=== PATIENT | female | born 1960 | race Caucasian/White ===

== ENCOUNTER → 2021-01-09 | Outpatient (CLI) | payer BC ==
--- NOTE | 2021-01-10 13:31 | REPMRS ---
Patient History The patient states she had a clinical breast exam in December 2020. Patient is postmenopausal and is nulliparous. Family history of colorectal cancer in paternal uncle, breast cancer in mother, colorectal cancer in paternal grandfather, unknown cancer in maternal grandmother. No Hormone Replacement Therapy Covid vaccines in her right arm 06/2020. Patient states no breast complaints today. Patient has signed MRS History Sheet. Digital Woman Screen Mammo: January 09, 2021 - Exam #: [id number] Bilateral CC and MLO view(s) were taken. Technologist: Joslyn Cameron, RT FINDINGS: There are scattered fibroglandular densities. Screening. Digital screening (2D) mammography was performed bilaterally in the CC and MLO projections. Additionally, breast tomosynthesis (3D mammography) was performed bilaterally in the CC and MLO projections. Todays exam was compared to the prior exam/exams. By history, the patient has no complaints of a palpable breast abnormality or other significant breast complaints. The breasts are unchanged in size and shape. There are no darrel-soft tissue densities or spiculated masses. There is no internal architectural distortion. Once again, stable benign appearing calcifications are seen.There are no suspicious darrel-calcific clusters. Skin thickening or nipple retraction is not present. IMPRESSION: BI-RADS Category 2- Benign Findings. There is no evidence of malignant alteration of the breasts. Followup examination recommended in one year. The Volpara volumetric breast density category is B, there are scattered areas of fibroglandular densities. This mammogram was read with the assistance of [facility],an FDA approved computer aided detection system for mammography. The lifetime Tyrer-Cuzick score is 22.4 % Due to the Tyrer Cuzick score of 20% or greater MRI is warranted. Negative x-ray reports should not delay surgical consultation if a dominant or clinically suspicious mass is present. Not all breast cancers can be identified by mammography. Therefore, we recommend that you continue to perform regular breast self-examination and physical examination and then promptly contact your physician of any concerns or changes. Adenosis and dense breasts may obscure an underlying neoplasm. Assessment: BI-RADS/ACR category 2 mammogram. Benign Findings. Recommendation Routine screening mammogram of both breasts in 1 year. Electronically Signed By: Silver Tim DO 01/10/21 1852
== END ==
LOC: M WHC 13:27
PROVIDERS: ATTEND Nurse Practitioner Family
DX: Z12.31 Encounter for screening mammogram for malignant neoplasm of breast (principal)

== ENCOUNTER → 2021-02-28 | Outpatient (CLI) | payer BC ==
[~2021-02-28] MED LIST: LEXA1TAB2 PO; ONE-1TAB PO
== END ==
LOC: M LABSMTC 09:39
PROVIDERS: ATTEND Anesthesiology
DX: Z01.812 Encounter for preprocedural laboratory examination (principal); Z20.822 Contact with and (suspected) exposure to COVID-19

== ENCOUNTER 2021-03-05 11:02 | Day surgery (SDC) | payer BC ==
[~2021-03-05] VITALS: Ht 167.6 cm; Wt 81.2 kg
[~2021-03-05 11:02] MED LIST changes: +NS 1,000 ML IV ONE
--- OUTSIDE RECORDS SUMMARY | 2021-03-05 11:06 | CCD ---
Author Organization Unknown Address [address] [place] [id number] Phone [phone] Care Team Providers Care Dye Stand Loader Name Role Phone Lani Ramírez Unavailable Unavailable Allergies Code Code System Name Reaction Severity Status Onset NKDA Medications Name Status Start Date Stop Date albuterol sulfate Active Not available Clenpiq 10 mg-3.5 gram-12 gram/160 mL oral solution Active 02/18/2021 Not available clindamycin 2 % vaginal cream Completed escitalopram 20 mg tablet Active Not av ailable fluconazole 150 mg tablet Completed 2020 metronidazole 0.75 % vaginal gel Completed 12/06/2020 metronidazole 500 mg tablet Take 1 tablet twice a day by oral route. Active Not available Problems Name Status Onset Date Source Human Papilloma Virus Infection Active 12/21/2020 Procedures Date Name Performed by 12/06/2020 MAMMO, Screening, Digital, Bilateral [facility] [address] [place], [place] [id number] (Work Place) 12/06/2020 LDCT, Chest, for Lung Cancer Screening S [facility] [address] [place], [place] [id number] (Work Place) Notes: has had 2 colposcopy Results Lab Results Date Name Specimen Result Interpretation Description Value Range Status Address Iron + TIBC + Ferritin, Serum Blood venous Normal Iro n, Total 81 mcg/dL 45-160 mcg/dL Final [facility] gh: [address] [facility] [place] Blood venous Normal Iron Binding Capacity 37 5 mcg/dL (calc) 250-450 mcg/dL (calc) Final [facility]: [address] [facility] [place] Blood venous Normal % Saturation 22 % (calc) 16-4 5 % (calc) Final [facility]: [address] [place] Blood venous Low Ferritin 9 NG/mL 16-232 NG/mL Final [facility]: [address] [facility] Lipid Panel, Serum Blood venous High Cholesterol, T otal 231 mg/dL <200 mg/dL Final [facility]: [address] [facility] Blood venous Normal HDL Cholesterol 61 mg/dL > or = 50 mg/dL [facility]: [address] [facility] Blood venous High Triglycerides 182 mg/dL <150 mg/dL Final [facility]: [address] [facility] Blood venous High LDL-cholesterol 138 mg/dL (ca lc) Final [facility]: [address] [facility] Blood venous Normal Chol/hdlc Ratio 3.8 (calc) <5 .0 (calc) [facility]: [address] [facility] Blood venous High Non HDL Cholesterol 170 mg/dL (calc) <130 mg/dL (calc) Final [facility]: [address] [facility] HIV 1+2 Ab + HIV1 P24 Ag, Quantitative Immunoassay, Serum Normal HIV Ag/Ab, 4TH Gen non-reactive non-reactive Final [facility]: [address] [facility] TSH + Free T4, Serum Blood venous Normal Tsh 3.60 mIU/L 0.40-4.50 mIU/L [facility]: [address] [facility] Blood venous Normal T4, Free 1.0 NG/dL 0.8-1.8 NG /dL [facility]: [address] [facility] CMP, Serum or Plasma Blood venous Normal Glucose 98 mg/dL 65-99 mg/dL [facility]: [address] [facility] Blood venous Normal Urea Nitrogen (BUN) 13 mg/dL 7-25 mg/dL [facility]: [address] [facility] Blood venous Normal Creatinine 0.77 mg/dL 0.50-1. 05 mg/dL [facility]: [address] [facility] Blood venous Normal eGFR Non-afr. Singaporean 8 5 mL/min/1.73m2 > or = 60 mL/min/1.73m2 Final [facility]: [address] [facility] Blood venous Normal eGFR 99 mL/min/1.73m2 > or = 60 mL/min/1.73m2 Final [facility] [address] [facility] Blood venous BUN/creatinine Ratio not applicable (calc) 6-22 (calc) [facility]: [address] [facility] Blood venous Normal Sodium 139 mmol/L 135-146 mmo l/L [facility]: [address] [facility] Blood venous Normal Potassium 4.5 mmol/L 3.5-5.3 mmol/L [facility]: [address] [facility] Blood venous Normal Chloride 103 mmol/L 98-110 mm ol/L [facility]: [address] [facility] Blood venous Normal Carbon Dioxide 32 mmol/L 20-3 2 mmol/L [facility]: [address] [facility] Blood venous Normal Calcium 9.2 mg/dL 8.6-10.4 mg /dL [facility]: [address] [facility] Blood venous Normal Protein, Total 7.0 g/dL 6.1-8 .1 g/dL [facility]: [address] [facility] Blood venous Normal Albumin 4.2 g/dL 3.6-5.1 g/dL [facility]: [address] [facility] Blood venous Normal Globulin 2.8 g/dL (calc) 1.9- 3.7 g/dL (calc) [facility]: [address] [facility] Blood venous Normal Albumin/globulin Ratio 1 .5 (calc) 1.0-2.5 (calc) [facility]: [address] [facility] Blood venous Normal Bilirubin, Total 0.5 mg/dL 0. 2-1.2 mg/dL [facility]: [address] [facility] Blood venous Normal Alkaline Phosphatase 73 U/L 3 7-153 U/L [facility]: [address] [facility] Blood venous Normal Ast 15 U/L 10-35 U/L [facility]: [address] [facility] Blood venous Normal Alt 15 U/L 6-29 U/L Final [facility]: [address] [facility] Urinalysis Complete, Reflex Culture Urine Normal Col or dark yellow yellow [facility]: [address] [facility] Urine Normal Appearance clear clear Final Ques [facility]: [address] [facility] Urine Normal Specific [place] 1.027 1.001-1.035 Final [facility]: [address] [facility] Urine Normal Ph 8.0 5.0-8.[address] [facility] gnostics [facility]: [address] [facility] Urine Normal Glucose negative negative Final [facility]: [address] [facility] Urine Normal Bilirubin negative negative Final Q uest [facility]: [address] [facility] Urine Normal Ketones negative negative Final [facility]: [address] [facility] Urine Normal Occult Blood negative negative Final [facility]: [address] [facility] Urine Normal Protein negative negative Final [facility]: [address] [facility] Urine Normal Nitrite negative negative Final [facility]: [address] [facility] Urine Normal Leukocyte Esterase negative negative Final [facility]: [address] [facility] Urine Squamous Epithelial Cells 0-5 /hpf < or = 5 /hpf Final [facility]: [address] [facility] Urine ABNORMAL Triple Phosphate Crystals mod erate /hpf none or few /hpf Final [facility]: [address] , [place] Urine Note Final [facility]: [address] [facility] Culture, Urine Reflexive Urine Culture Final [facility]: [address] [facility] CBC W/ Auto Diff Blood venous Normal White Bl ood Cell Count 5.0 thousand/uL 3.8-10.8 thousand/uL Final [facility]: [address] [facility] Blood venous Normal Red Blood Cell Count 4.5 4 million/uL 3.80-5.10 million/uL [facility]: [address] [facility] Blood venous Normal Hemoglobin 12.2 g/dL 11.7-15. 5 g/dL [facility]: [address] [facility] Blood venous Normal Hematocrit 37.2 % 35.0-45.0 % [facility]: [address] [facility] Blood venous Normal Mcv 81.9 fL 80.0-100.0 fL Fi nal [facility]: [address] [facility] Blood venous Low Mch 26.9 pg 27.0-33.0 pg Fin [facility]: [address] [facility] Blood venous Normal Mchc 32.8 g/dL 32.0-36.0 g/dL [facility]: [address] [facility] Blood venous Normal Rdw 14.2 % 11.0-15.0 % [facility]: [address] [place] Blood venous Normal Platelet Count 288 thous and/uL 140-400 thousand/uL [facility]: [address] [facility] Blood venous Normal Mpv 10.6 fL 7.5-12.5 fL Cinthya l [facility]: [address] [facility] Blood venous Normal Absolute Neutrophils 216 5 cells/uL 0064-2799 cells/uL [facility]: [address] [facility] Blood venous Normal Absolute Lymphocytes 205 0 cells/uL 850-3900 cells/uL [facility]: [facility] Blood venous Normal Absolute Monocytes 545 c ells/uL 200-950 cells/uL [facility]: [address] [facility] Blood venous Normal Absolute Eosinophils 150 cells/uL 15-500 cells/uL [facility]: [address] [facility] Blood venous Normal Absolute Basophils 90 ce lls/uL 0-200 cells/uL [facility] [address] [facility] [address] [facility] Blood venous Normal Neutrophils 43.3 % 38-80 % [facility]: [address] [facility] Blood venous Normal Lymphocytes 41.0 % 15-49 % [facility]: [facility] [facility] Blood venous Normal Monocytes 10.9 % 0-13 % [facility]: [address] [facility] Blood venous Normal Eosinophils 3.0 % 0-8 % Fin [facility]: [address] [facility] Blood venous Normal Basophils 1.8 % 0-2 % [facility]: [address] [facility] Hepatitis C Virus Ab, Serum Blood venous Normal Hepatitis C Antibody non-reactive non-reactive [facility]: [address] [facility] Blood venous Normal Index 0.01 <1.00 Final Qu est [facility]: [address] [facility] Vitamin B12 + Folate, Serum or Blood Blood venous Normal Vitamin B12 601 pg/mL 200-1100 pg/mL Final [facility]: [address] [facility] Blood venous Normal Folate, Serum >24.0 NG/mL [facility]: [address] [facility] Vitamin D, 25-Hydroxy, Total, Serum Blood venous Normal Vitamin D,25- Oh,total,ia 36 NG/mL 30-100 NG/mL Final [facility]: [address] [facility] HbA1C (Hemoglobin a1C), Blood Blood venous High Hemoglobin a1C 5.8 % of total HGB <5.7 % of total HGB Final [facility]: [address] [facility] Pap, IG + CT/NG/TV + HPV mRNA E6/E7 Normal Cli nical Information: Final [facility]: [address] [facility] Normal Lmp: Final [facility] Di[facility] nostics [facility]: [address] [facility] Normal Prev. Pap: Final Ques t [facility]: [address] [facility] Normal Prev. BX: [facility]: [address] [facility] Normal Source: Final [facility]: [address] [facility] Normal Statement of Adequacy: [facility]: [address] [facility] Normal Interpretation/result: [facility]: [address] [facility] Normal Infection: Final Ques t Diagnostics [facility]: [address] [facility] Normal Comment: [facility]: [address] [facility] Normal Cistern Room Working Supervisor: Cinthya bates [facility]: [address] [facility] Normal Review Cistern Room Working Supervisor: [facility]: [address] [facility] Comment [facility]: [address] [facility] ABNORMAL Hpv Mrna E6/E7 detected not detect ed Final [facility]: [address] [facility] Normal Chlamydia Trachomatis RNA, Tma, Urogenital not detected not detected [facility] [address] [facility] Normal Neisseria Gonorrhoeae RNA, Tma, Urogenital not detected not detected Final [facility]: [address] [place] Comment Final [facility]: [address] [place] Normal Trichomonas Vaginalis, Ql Tma, Pap Vial not detected not detected Final [facility]: [address] [place] Past Encounters 02/18/2021 Immunization Advised; Bacterial Vaginosis MARIOLA CardonaP: [address] [place] [phone], Ph. 01/18/2021 Patient Asked to Attend; Mixed Hyperlipidemia; Prediabetes Agnieszkamanny Darden [facility]: [address] [place] [phone], Ph. 12/17/2020 Gynecologic Examination; Screening for Malignant Neoplasm of Cervix; Human Papilloma Virus Infection Rima Segundo MD: [address] [place] [phone], Ph. 12/14/2020 Kevin Faria MD: [address] [place] [phone], Ph. 12/06/2020 Body Mass Index 25-29 - Overweight; Screening for Malignant Neoplasm of Colon; Screening for Malignant Neoplasm of Breast; Tobacco Dependence in Remission; Pain in Right Foot; Adult Health Examination Agnieszka Darden [facility]: [address] [place] [phone], Ph. Social History Tobacco Smoking Status Former Smoker Vaccine List Vaccine Type COVID-19, mRNA, LNP-S, PF, 100 mcg/0.5 m L dose 07/20/2020 08/17/2020 HPV9 10.5 mL 10.5 mL Plan of Care Patient Instructions Lab results reviewed and discussed with you today. Lab results unremarkable except for elevated cholesterol and pre diabetes. Please try to maintain good nutrition, adequate rest and adequate physical activities and adequate intake of water daily. continue healthy diet and physical activities. Please try to limit sugars. carbohydrates, sodium and fats in your diet. Please try to avoid processed foods. Physical exam done today. Please continu e medications as prescribed. Please continue healthy diet and physical activities. Please try to limit sugars and carbohydrates in your diet. Please try to maintain adequate intake of water daily. Reminders Provider Appointments None recorded. Lab None recorded. Referral None recorded. Procedures None recorded. Surgeries None recorded. Imaging None recorded. Vitals 02/18/2021 01:00PM ESTABLISHED [id number] Height Weight BMI Blood Pressure 66 in 179 lbs 2 oz 28.9 kg/m2 136/85 mm[Hg] 01/18/2021 09:20AM TELEHEALTH 20 Height 66 in 12/17/2020 11:00AM PAP SMEAR Height Weight BMI Blood Pressure 66 in 174 lbs 8 oz 28.2 kg/m2 132/72 mm[Hg] 12/14/2020 08:20AM NURSE LAB COLLECTION Height 66 in 12/06/2020 01:00PM NEW PATIENT (12yrs - OLDER) Height Weight BMI Blood Pressure 66 in 176 lbs 3.2 oz 28.4 kg/m2 134/71 mm[Hg ]
--- OUTSIDE RECORDS SUMMARY | 2021-03-05 11:06 | CCD | Continuity of Care Document ---
Author Author Anamika HUMPHRIES PA-C Organization Unknown Address [address] [place] [address], [address] [place] [address] Phone [phone] Care Team Providers Care Delinquency Prevention Officer Name Role Phone Agnieszka Darden AUTM [phone] Problems Active Problems Provider Date Allergic asthma without status asthmaticus Rachna kinney, RPA-C Onset: 01/22/2021 Social History Type Date Description Comments Sex Unknown ETOH Use 1-5 per week Tobacco Use Start: Unknown Non Smoker Allergies, Adverse Reactions, Alerts Description No Known Drug Allergies Medications Active Medications SIG Qnty Indications Ordering Provide r Date Clenpiq 10-3.5-12mg-GM -GM/160ML S olution take as directed per doctor's bowel prep instructions. 320ml Z12.1 1 Heath Millan MD 01/22/[address] take 4 tabs by mouth prior to procedure per instructions. 4tabs Z12.11 Heath Millan MD 01/22/2021 Escitalopram Oxalate 20mg Tablets 1 by mouth every day Unknown Multivitamin Adults Tablets Daily Unknown Albuterol Sulfate HFA 108(90Base) mcg/Act Aerosol inhale two puffs by mouth four times a day as needed Unknown Iron (Ferrous Sulfate) 325(65Fe) mg Tablets Take as directed. Unknown Immunizations Description No Information Available Vital Signs Date Vital Result Comment 01/22/2021 1:41pm BP Systolic 112 mmHg BP Diastolic 84 mmHg Height 66 inches 5'6" Weight 180.00 lb BMI (Body Mass Index) 29.0 kg/m2 [place] Body Weight 130 lb Weight 81.648 kg BSA (Body Surface Area) 1.91 m2 Results Description No Information Available Procedures Description No Information Available Medical Devices Description No Information Available Encounters Description No Information Available Assessments Date Code Description Provider 01/22/2021 Z12.11 Encounter for screening for ajit gnant neoplasm of colon Rachna NewtonMIRNA duncan 01/22/2021 Z86.010 Personal history of colonic poly ps Rachna NewtonMIRNA duncan 01/22/2021 Z80.0 Family history of malignant neop lasm of digestive organs Rachna A MIRNA Humphries Plan of Treatment 01/22/2021 - Rachna NewtonMIRNA duncan* Z12.11 Encounter for screening for malignant neoplasm of colon * Z86.010 Personal history of colonic polyps * Z80.0 Family history of malignant neoplasm of digestive organs * * New Medication:* Clenpiq 10-3.5-12 mg-GM -GM/160ML * Dulcolax 5 mg * New Orders:* Colonoscopy, Ordered: 01/22/21 * Comments:* Will arrange for colonoscopy. Reviewed risks and benefits of the procedure, as well as other options, with the patient. Bowel prep procedure was discussed with patient, as well as risks and side effects associated with the bowel prep. Patient verbalized understanding of all of the above and is in agreement to proceed. Patient will seek medical attention for any acute changes. Will monitor. * Follow up:* As scheduled, sooner if needed. Functional Status Description No Information Available Mental Status Description No Information Available Referrals Refer to Reason for Referral Status Appt Date Scott Campa M.D. COLO SCREENING Scheduled 01/03 [facility] [address] [facility], [address] [place] [address] [phone]
--- OUTSIDE RECORDS SUMMARY | 2021-03-05 11:06 | CCD | Continuity of Care Document ---
Author Author Anamika HUMPHRIES PA-C Organization Unknown Address [address] [place] [address], [address] [place] [address] Phone [phone] Care Team Providers Care Second Cook And Baker Name Role Phone Agnieszka Darden AUTM [phone] Problems Active Problems Provider Date Allergic asthma [...] lb BMI (Body Mass Index) 29.0 kg/m2 [place] Body Weight 130 lb Weight 81.648 kg [...] Scott Campa M.D. COLO SCREENING Scheduled 01/03 [facility] [address], [address] [place] [address] [phone]
--- OUTSIDE RECORDS SUMMARY | 2021-03-05 11:07 | CCD ---
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 Role Phone Agnieszka Darden Unavailable Unavailable Allergies Code Code System Name Reaction Severity Status Onset NKDA Medications Name Status Start Date Stop Date albuterol sulfate Active Not available clindamycin 2 % vaginal cream Completed escitalopram 20 mg tablet Take one tablet by mouth daily Active Not avai lable fluconazole 150 mg tablet Completed 2020 metronidazole 0.75 % vaginal gel Completed 12/06/2020 metronidazole 500 mg tablet Completed 09/2020 Problems Name Status Onset Date Source Human Papilloma Virus Infection Active 12/21/2020 Procedures Date Name Performed by 12/06/2020 MAMMO, Screening, Digital, Bilateral [facility] [address] [place] [address] (Work Place) 12/06/2020 LDCT, Chest, for Lung Cancer Screening [facility] Oncology[facility]Radiology [address] [place] [address] (Work Place) Notes: has had 2 colposcopy Results Lab Results Date Name Specimen Result Interpretation Description Value Range Status Address Iron + TIBC + Ferritin, Serum Blood venous Normal Iro n, Total 81 mcg/dL 45-160 mcg/dL [facility] [address] [facility] Blood venous Normal Iron Binding Capacity 37 5 mcg/dL (calc) 250-450 mcg/dL (calc) [facility] [address] [facility] Blood venous Normal % Saturation 22 % (calc) 16-4 5 % (calc) [facility]: [address] [facility] Blood venous Low Ferritin 9 NG/mL 16-232 NG/mL Final [facility]: [address] [facility] Lipid Panel, Serum Blood venous High Cholesterol, T otal 231 mg/dL <200 mg/dL [facility] [address] [facility] Blood venous Normal HDL Cholesterol 61 mg/dL > or = 50 mg/dL Final [facility]: [address] [facility] Blood venous High Triglycerides 182 mg/dL <150 mg/dL Final [facility]: [address] [facility] Blood venous High LDL-cholesterol 138 mg/dL (ca lc) Final [facility]: [address] [facility] Blood venous Normal Chol/hdlc Ratio 3.8 (calc) <5 .0 (calc) Final [facility]: [address] [facility] Blood venous High Non HDL Cholesterol 170 mg/dL (calc) <130 mg/dL (calc) [facility] [address] [facility] HIV 1+2 Ab + HIV1 P24 Ag, Quantitative Immunoassay, Serum Normal HIV Ag/Ab, 4TH Gen non-reactive non-reactive Final [facility]: [address] [facility] TSH + Free T4, Serum Blood venous Normal Tsh 3.60 mIU/L 0.40-4.50 mIU/L Final [facility]: [address] [facility] Blood venous Normal T4, Free 1.0 NG/dL 0.8-1.8 NG /dL Final [facility]: [address] [facility] CMP, Serum or Plasma Blood venous Normal Glucose 98 mg/dL 65-99 mg/dL Final [facility]: [address] [facility] Blood venous Normal Urea Nitrogen (BUN) 13 mg/dL 7-25 mg/dL Final [facility]: [address] [facility] Blood venous Normal Creatinine 0.77 mg/dL 0.50-1. 05 mg/dL Final [facility]: [address] [facility] Blood venous Normal eGFR Non-afr. Bhutanese 8 5 mL/min/1.73m2 > or = 60 mL/min/1.73m2 [facility] [address] [facility] Blood venous Normal eGFR 99 mL/min/1.73m2 > or = 60 mL/min/1.73m2 [facility] [address] [facility] Blood venous BUN/creatinine Ratio not applicable (calc) 6-22 (calc) [facility]: [address] [facility] Blood venous Normal Sodium 139 mmol/L 135-146 mmo l/L [facility]: [address] [facility] Blood venous Normal Potassium 4.5 mmol/L 3.5-5.3 mmol/L [facility]: [address] [facility] Blood venous Normal Chloride 103 mmol/L 98-110 mm ol/L [facility]: [address] [facility] Blood venous Normal Carbon Dioxide 32 mmol/L 20-3 2 mmol/L [facility]: [address] [facility] Blood venous Normal Calcium 9.2 mg/dL 8.6-10.4 mg /dL [facility]: [address] [facility] Blood venous Normal Protein, Total 7.0 g/dL 6.1-8 .1 g/dL [facility]: [address] [facility] Blood venous Normal Albumin 4.2 g/dL 3.6-5.1 g/dL [facility]: [address] [facility] Blood venous Normal Globulin 2.8 g/dL (calc) 1.9- 3.7 g/dL (calc) [facility]: [address] [facility] Blood venous Normal Albumin/globulin Ratio 1 .5 (calc) 1.0-2.5 (calc) [facility]: [address] [facility] Blood venous Normal Bilirubin, Total 0.5 mg/dL 0. 2-1.2 mg/dL Final [facility]: [address] [facility] Blood venous Normal Alkaline Phosphatase 73 U/L 3 7-153 U/L [facility]: [address] [facility] Blood venous Normal Ast 15 U/L 10-35 U/L Final [facility]: [address] [facility] Blood venous Normal Alt 15 U/L 6-29 U/L Final uest [facility]: [address] [facility] Urinalysis Complete, Reflex Culture Urine Normal Col or dark yellow yellow Final [facility]: [address] [facility] Urine Normal Appearance clear clear Final Ques t [facility]: [address] [facility] Urine Normal Specific [place] 1.027 1.001-1.035 Final [facility]: [address] [facility] Urine Normal Ph 8.0 5.0-8.0 Final [facility] [place] [address] [facility] Urine Normal Glucose negative negative Final Que [facility]: [address] [facility] Urine Normal Bilirubin negative negative Final Q uest [facility]: [address] [facility] Urine Normal Ketones negative negative Final Que [facility] [address] [facility] Urine Normal Occult Blood negative negative Final [facility]: [address] [facility] Urine Normal Protein negative negative Final Que [facility]: [address] [facility] Urine Normal Nitrite negative negative Final Que [facility]: [address] [facility] Urine Normal Leukocyte Esterase negative negative Final [facility]: [address] [facility] Urine Squamous Epithelial Cells 0-5 /hpf < or = 5 /hpf Final [facility]: [address] [facility] Urine ABNORMAL Triple Phosphate Crystals mod erate /hpf none or few /hpf Final [facility]: [address] [facility] Urine Note Final [facility] Diag nost[facility]: [address] [facility] Culture, Urine Reflexive Urine Culture Final [facility]: [address] [facility] CBC W/ Auto Diff Blood venous Normal White Bl ood Cell Count 5.0 thousand/uL 3.8-10.8 thousand/uL Final [facility]: [address] [facility] Blood venous Normal Red Blood Cell Count 4.5 4 million/uL 3.80-5.10 million/uL [facility] [address] [facility] Blood venous Normal Hemoglobin 12.2 g/dL 11.7-15. 5 g/dL Final [facility]: [address] [facility] Blood venous Normal Hematocrit 37.2 % 35.0-45.0 % Final [facility]: [address] [facility] Blood venous Normal Mcv 81.9 fL 80.0-100.0 fL Fi nal [facility]: [address] [facility] Blood venous Low Mch 26.9 pg 27.0-33.0 pg Fin al [facility]: [address] [facility] Blood venous Normal Mchc 32.8 g/dL 32.0-36.0 g/dL [facility]: [address] [facility] Blood venous Normal Rdw 14.2 % 11.0-15.0 % [facility]: [address] [facility] Blood venous Normal Platelet Count 288 thous and/uL 140-400 thousand/uL [facility]: [address] [facility] Blood venous Normal Mpv 10.6 fL 7.5-12.5 fL C[facility]: [address] [facility] Blood venous Normal Absolute Neutrophils 216 5 cells/uL [phone] cells/uL [facility]: [address] [facility] Blood venous Normal Absolute Lymphocytes 205 0 cells/uL 850-3900 cells/uL [facility]: [address] [facility] Blood venous Normal Absolute Monocytes 545 c ells/uL 200-950 cells/uL [facility]: [address] [facility] Blood venous Normal Absolute Eosinophils 150 cells/uL 15-500 cells/uL [facility]: [address] [facility] Blood venous Normal Absolute Basophils 90 ce lls/uL 0-200 cells/uL [facility]: [address] [facility] Blood venous Normal Neutrophils 43.3 % 38-80 % Fi [facility]: [address] [facility] Blood venous Normal Lymphocytes 41.0 % 15-49 % Fi [facility]: [address] [facility] Blood venous Normal Monocytes 10.9 % 0-13 % [facility]: [address] [facility] Blood venous Normal Eosinophils 3.0 % 0-8 % Fin [facility]: [address] [facility] Blood venous Normal Basophils 1.8 % 0-2 % [facility]: [address] [facility] Hepatitis C Virus Ab, Serum Blood venous Normal Hepatitis C Antibody non-reactive non-reactive [facility]: [address] [facility] Blood venous Normal Index 0.01 <1.00 Final est [facility]: [address] [facility] Vitamin B12 + Folate, Serum or Blood Blood venous Normal Vitamin B12 601 pg/mL 200-1100 pg/mL Final [facility]: [address] [facility] Blood venous Normal Folate, Serum >24.0 NG/mL Final [facility]: [address] [facility] Vitamin D, 25-Hydroxy, Total, Serum Blood venous Normal Vitamin D,25- Oh,total,ia 36 NG/mL 30-100 NG/mL Final [facility]: [address] [facility] HbA1C (Hemoglobin a1C), Blood Blood venous High Hemoglobin a1C 5.8 % of total HGB <5.7 % of total HGB Final [facility]: [address] [facility] Pap, IG + CT/NG/TV + HPV mRNA E6/E7 Normal Cli nical Information: Final [facility]: [address] [facility] Normal Lmp: Final [facility] Dia nostics [facility]: [address] [facility] Normal Prev. Pap: Final Ques t [facility]: [address] [facility] Normal Prev. BX: Final [facility]: [address] [facility] Normal Source: Final [facility]: [address] [facility] Normal Statement of Adequacy: Final [facility]: [address] [facility] Normal Interpretation/result: Final [facility]: [address] [facility] Normal Infection: Final Ques t [facility]: [address] [facility] Normal Comment: Final [facility]: [address] [facility] Normal [place] Copyist: Cinthya bates [facility]: [address] [facility] Normal Review [place] Copyist: Final [facility]: [address] [facility] Comment [facility]: [address] [facility] ABNORMAL Hpv Mrna E6/E7 detected not detect ed Final [facility]: [address] [facility] Normal Chlamydia Trachomatis RNA, Tma, Urogenital not detected not detected [facility] [address] [facility] Normal Neisseria Gonorrhoeae RNA, Tma, Urogenital not detected not detected Final [facility] gh: [address] [facility] Comment Final [facility] [place]: [address] [place] Normal Trichomonas Vaginalis, Ql Tma, Pap Vial not detected not detected Final [facility]: [address], [place] Past Encounters 01/18/2021 Patient Asked to Attend; Mixed Hyperlipidemia; Prediabetes MARIOLA TiptonP-BC: [address] [place] [phone], Ph. 12/17/2020 Gynecologic Examination; Screening for Malignant Neoplasm of Cervix; Human Papilloma Virus Infection Rima Segundo MD: [address] [place] [phone], Ph. 12/14/2020 Kevin Faria MD: [address] [place] [phone], Ph. 12/06/2020 Body Mass Index 25-29 - Overweight; Screening for Malignant Neoplasm of Colon; Screening for Malignant Neoplasm of Breast; Tobacco Dependence in Remission; Pain in Right Foot; Adult Health Examination CARMEN Tipton-: [address] [place] [phone], Ph. Social History Tobacco Smoking Status Former Smoker Vaccine List Vaccine Type COVID-19, mRNA, LNP-S, PF, 100 mcg/0.5 m L dose 07/20/2020 08/17/2020 HPV9 .5 mL Plan of Care Patient Instructions Lab [...] Surgeries None recorded. Imaging None recorded. Vitals 01/18/2021 09:20AM TELEHEALTH 20 Height 66 in [...]
--- OUTSIDE RECORDS SUMMARY | 2021-03-05 11:07 | CCD ---
Author Author [facility] Organization [facility] Address Unknown Phone Unavailable Care Team Providers Care Commercial Loan Underwriter Name Role Phone Ranjit Faria MD Unavailable Unavailable Ranjit Faria MD Unavailable Unavailable Ranjit Faria MD Unavailable Unavailable Ranjit Faria MD Unavailable Unavailable Ranjit Faria MD Unavailable Unavailable Ranjit Faria MD Unavailable Unavailable Ranjit Faria MD Unavailable Unavailable Ranjit Faria MD Unavailable Unavailable Ranjit Faria MD Unavailable Unavailable Ranjit Faria MD Unavailable Unavailable Ranjit Faria MD Unavailable Unavailable Ranjit Faria MD Unavailable Unavailable Ranjit Faria MD Unavailable Unavailable Ranjit Faria MD Unavailable Unavailable Ranjit Faria MD Unavailable Unavailable Ranjit Faria MD Unavailable Unavailable Ranjit Faria MD Unavailable Unavailable Ranjit Faria MD Unavailable Unavailable Ranjit Faria MD Unavailable Unavailable Ranjit Faria MD Unavailable Unavailable Ranjit Faria MD Unavailable Unavailable Ranjit Faria MD Unavailable Unavailable Ranjit Faria MD Unavailable Unavailable Ranjit Faria MD Unavailable Unavailable Ranjit Faria MD Unavailable Unavailable Ranjit Faria MD Unavailable Unavailable Ranjit Faria MD Unavailable Unavailable Ranjit Faria MD Unavailable Unavailable Ranjit Faria MD Unavailable Unavailable Ranjit Faria MD Unavailable Unavailable Ranjit Faria MD Unavailable Unavailable Ranjit Faria MD Unavailable Unavailable Ranjit Faria MD Unavailable Unavailable Ranjit Faria MD Unavailable Unavailable Ranjit Faria MD Unavailable Unavailable Ranjit Faria MD Unavailable Unavailable Ranjit Faria MD Unavailable Unavailable Ranjit Faria MD Unavailable Unavailable Ranjit Faria MD Unavailable Unavailable Ranjit Faria MD Unavailable Unavailable Ranjit Faria MD Unavailable Unavailable Ranjit Faria MD Unavailable Unavailable Ranjit Faria MD Unavailable Unavailable Ranjit Faria MD Unavailable Unavailable Ranjit Faria MD Unavailable Unavailable Ranjit Faria MD Unavailable Unavailable Ranjit Faria MD Unavailable Unavailable Ranjit Faria MD Unavailable Unavailable Ranjit Faria MD Unavailable Unavailable FariaRanjit MD Unavailable Unavailable FariaRanjit MD Unavailable Unavailable FariaRanjit MD Unavailable Unavailable Faria, Ranjit Brown MD Unavailable Unavailable FariaRanjit MD Unavailable Unavailable Ranjit Faria MD Unavailable Unavailable Ranjit Faria MD Unavailable Unavailable Ranjit Faria MD Unavailable Unavailable Ranjit Faria MD Unavailable Unavailable FariaRanjit MD Unavailable Unavailable Faria, Ranjit Brown MD Unavailable Unavailable Faria, Ranjit Brown MD Unavailable Unavailable Faria, Ranjit Brown MD Unavailable Unavailable Faria, Ranjit Brown MD Unavailable Unavailable Faria, Ranjit Brown MD Unavailable Unavailable Faria, Ranjit Brown MD Unavailable Unavailable Ranjit Faria MD Unavailable Unavailable Ranjit Faria MD Unavailable Unavailable Faria, Ranjit Brown MD Unavailable Unavailable Faria, Ranjit Brown MD Unavailable Unavailable Faria, Ranjit Brown MD Unavailable Unavailable Faria, Ranjit Brown MD Unavailable Unavailable Ranjit Faria MD Unavailable Unavailable Faria, Ranjit Brown MD Unavailable Unavailable Ranjit Faria MD Unavailable Unavailable Ranjit Faria MD Unavailable Unavailable Ranjit Faria MD Unavailable Unavailable Ranjit Faria MD Unavailable Unavailable Ranjit Faria MD Unavailable Unavailable Faria, Ranjit Brown MD Unavailable Unavailable FariaRanjit MD Unavailable Unavailable FariaRanjit MD Unavailable Unavailable FariaRanjit MD Unavailable Unavailable Ranjit Faria MD Unavailable Unavailable Ranjit Faria MD Unavailable Unavailable Ranjit Faria MD Unavailable Unavailable Ranjit Faria MD Unavailable Unavailable Ranjit Faria MD Unavailable Unavailable Ranjit Faria MD Unavailable Unavailable Ranjit Faria MD Unavailable Unavailable Ranjit Faria MD Unavailable Unavailable Ranjit Faria MD Unavailable Unavailable Ranjit Faria MD Unavailable Unavailable Ranjit Faria MD Unavailable Unavailable Ratna, Charlene Unavailable Unavailable Ratna, Charlene Unavailable Unavailable Ratna, Charlene Unavailable Unavailable Ratna, Charlene Unavailable Unavailable Ratna, Charlene Unavailable Unavailable Ratna, Charlene Unavailable Unavailable Ratna, Charlene Unavailable Unavailable Ratna, Charlene Unavailable Unavailable Ratna, Charlene Unavailable Unavailable Ratna, Charlene Unavailable Unavailable Ratna, Charlene Unavailable Unavailable Ratna, Charlene Unavailable Unavailable Ratna, Charlene Unavailable Unavailable Ratna, Charlene Unavailable Unavailable Ratna, Charlene Unavailable Unavailable Ratna, Charlene Unavailable Unavailable Ratna, Charlene Unavailable Unavailable Ratna, Charlene Unavailable Unavailable Ratna, Charlene Unavailable Unavailable Ratna, Charlene Unavailable Unavailable Ratna, Charlene Unavailable Unavailable Ratna, Charlene Unavailable Unavailable Ratna, Charlene Unavailable Unavailable Ratna, Charlene Unavailable Unavailable Ratna, Charlene Unavailable Unavailable Ratna, Charlene Unavailable Unavailable LAROCK, J JUAN C MULTIMEDIA SERVICES COORDINATOR Unavailable Unavailable LAROCK, J JUAN C MULTIMEDIA SERVICES COORDINATOR Unavailable Unavailable LAROCK, J JUAN C MULTIMEDIA SERVICES COORDINATOR Unavailable Unavailable LAROCK, J JUAN C MULTIMEDIA SERVICES COORDINATOR Unavailable Unavailable LAROCK, J JUAN C MULTIMEDIA SERVICES COORDINATOR Unavailable Unavailable LAROCK, J JUAN C MULTIMEDIA SERVICES COORDINATOR Unavailable Unavailable LAROCK, J JUAN C MULTIMEDIA SERVICES COORDINATOR Unavailable Unavailable LAROCK, J JUAN C MULTIMEDIA SERVICES COORDINATOR Unavailable Unavailable LAROCK, J JUAN C MULTIMEDIA SERVICES COORDINATOR Unavailable Unavailable LAROCK, J JUAN C MULTIMEDIA SERVICES COORDINATOR Unavailable Unavailable LAROCK, J JUAN C MULTIMEDIA SERVICES COORDINATOR Unavailable Unavailable LAROCK, J JUAN C MULTIMEDIA SERVICES COORDINATOR Unavailable Unavailable LAROCK, J JUAN C MULTIMEDIA SERVICES COORDINATOR Unavailable Unavailable LAROCK, J JUAN C MULTIMEDIA SERVICES COORDINATOR Unavailable Unavailable LAROCK, J JUAN C MULTIMEDIA SERVICES COORDINATOR Unavailable Unavailable LAROCK, J JUAN C MULTIMEDIA SERVICES COORDINATOR Unavailable Unavailable LAROCK, J JUAN C MULTIMEDIA SERVICES COORDINATOR Unavailable Unavailable LAROCK, J JUAN C MULTIMEDIA SERVICES COORDINATOR Unavailable Unavailable LAROCK, J JUAN C MULTIMEDIA SERVICES COORDINATOR Unavailable Unavailable LAROCK, J JUAN C MULTIMEDIA SERVICES COORDINATOR Unavailable Unavailable LAROCK, J JUAN C MULTIMEDIA SERVICES COORDINATOR Unavailable Unavailable LAROCK, J JUAN C MULTIMEDIA SERVICES COORDINATOR Unavailable Unavailable [place], A Agnieszka MEDICAL OFFICE SPECIALIST Unavailable Unavailable [place], A Agnieszka MEDICAL OFFICE SPECIALIST Unavailable Unavailable [place], A Agnieszka MEDICAL OFFICE SPECIALIST Unavailable Unavailable [place], A Agnieszka MEDICAL OFFICE SPECIALIST Unavailable Unavailable [place], A Agnieszka MEDICAL OFFICE SPECIALIST Unavailable Unavailable [place], A Agnieszka MEDICAL OFFICE SPECIALIST Unavailable Unavailable [place], A Agnieszka MEDICAL OFFICE SPECIALIST Unavailable Unavailable [place], A Agnieszka MEDICAL OFFICE SPECIALIST Unavailable Unavailable [place], A Agnieszka MEDICAL OFFICE SPECIALIST Unavailable Unavailable [place], A Agnieszka MEDICAL OFFICE SPECIALIST Unavailable Unavailable [place], A Agnieszka MEDICAL OFFICE SPECIALIST Unavailable Unavailable [place], A Agnieszka MEDICAL OFFICE SPECIALIST Unavailable Unavailable [place], A Agnieszka MEDICAL OFFICE SPECIALIST Unavailable Unavailable [place], A Agnieszka MEDICAL OFFICE SPECIALIST Unavailable Unavailable [place], A Agnieszka MEDICAL OFFICE SPECIALIST Unavailable Unavailable [place], A Agnieszka MEDICAL OFFICE SPECIALIST Unavailable Unavailable [place], A Agnieszka MEDICAL OFFICE SPECIALIST Unavailable Unavailable [place], A Agnieszka MEDICAL OFFICE SPECIALIST Unavailable Unavailable [place], A Agnieszka MEDICAL OFFICE SPECIALIST Unavailable Unavailable [place], A Agnieszka MEDICAL OFFICE SPECIALIST Unavailable Unavailable [place], A Agnieszka MEDICAL OFFICE SPECIALIST Unavailable Unavailable [place], A Agnieszka MEDICAL OFFICE SPECIALIST Unavailable Unavailable [place], A Agnieszka MEDICAL OFFICE SPECIALIST Unavailable Unavailable [place], A Agnieszka MEDICAL OFFICE SPECIALIST Unavailable Unavailable [place], A Agnieszka MEDICAL OFFICE SPECIALIST Unavailable Unavailable [place], A Agnieszka MEDICAL OFFICE SPECIALIST Unavailable Unavailable [place], A Agineszka MEDICAL OFFICE SPECIALIST Unavailable Unavailable [place], A Agnieszka MEDICAL OFFICE SPECIALIST Unavailable Unavailable [place], A Agnieszka MEDICAL OFFICE SPECIALIST Unavailable Unavailable [place], A Agnieszka MEDICAL OFFICE SPECIALIST Unavailable Unavailable David Darden MEDICAL OFFICE SPECIALIST Unavailable Unavailable Darrell, Lani Unavailable [phone] Darrell, Lani Unavailable [phone] Darrell, Lani Unavailable [phone] Darrell, Lani Unavailable [phone] Re-disclosure Warning The records that you are about to access may contain information from federally-assisted alcohol or drug abuse programs. If such information is present, then the following federally mandated warning applies: This information has been disclosed to you from records protected by federal confidentiality rules (42 CFR part 2). The federal rules prohibit you from making any further disclosure of this information unless further disclosure is expressly permitted by the written consent of the person to whom it pertains or as otherwise permitted by 42 CFR part 2. A general authorization for the release of medical or other information is NOT sufficient for this purpose. The Federal rules restrict any use of the information to criminally investigate or prosecute any alcohol or drug abuse patient.The records that you are about to access may contain highly sensitive health information, the redisclosure of which is protected by Article 27-F of the [facility] Public Health law. If you continue you may have access to information: Regarding HIV / AIDS; Provided by facilities licensed or operated by the [facility] Office of Mental Health; or Provided by the [facility] Office for People With Developmental Disabilities. If such information is present, then the following [facility] mandated warning applies: This information has been disclosed to you from confidential records which are protected by state law. State law prohibits you from making any further disclosure of this information without the specific written consent of the person to whom it pertains, or as otherwise permitted by law. Any unauthorized further disclosure in violation of state law may result in a fine or intermediate sentence or both. A general authorization for the release of medical or other information is NOT sufficient authorization for further disc losure. Encounters Encounter Providers Location Date Indications Data Source(s ) CARMEN Cardona: [address] [place] [id number], Ph. Attender: Lani Ramírez [facility] Medical 02/18/2021 12:00:00 AM EDT [facility] ([facility]) Agnieszka Darden [facility]: [address], [place] [address], Ph. Attender: Agnieszka Darden [facility] Medical 01/18/2021 12:00:00 AM EDT [place] ([facility]) Agnieszka Darden [facility]: [address], [place] [address], Ph. Attender: Agnieszka Darden [facility] Medical 01/18/2021 12:00:00 AM EDT [facility] ([facility]) Outpatient 12/25/2020 07:18:57 AM EDT - 021 07:37:47 AM EDT [facility] ([facility]) Rima Segundo MD: [address], [place] [address], Ph. Attender: Rima Segundo [facility] Medical 12/17/2020 12:00:00 AM EDT [facility] ([facility]) Rima Segundo MD: [address], [place] [address], Ph. Attender: Rima Segundo [facility] Medical 12/17/2020 12:00:00 AM EDT [facility] ([facility]) Rima Segundo MD: [address], [place] [address], Ph. Attender: Rima Segundo [facility] Medical 12/17/2020 12:00:00 AM EDT [facility] ([facility]) Rima Segundo MD: [address], [place] [address], Ph. Attender: Rima Segundo [facility] Medical 12/17/2020 12:00:00 AM EDT [facility] ([facility]) Kevin Faria MD: [address] [place] [address], Ph. Attender: Kevin Faria MD [facility] Medical 12/14/2020 12:00:00 AM EDT [facility] ([facility]) Kevin Faria MD: [address] [place] [address], Ph. Attender: Kevin Faria MD [facility] Medical 12/14/2020 12:00:00 AM EDT [facility] ([facility]) Kevin Faria MD: [address] [place] [address], Ph. Attender: Kevin Faria MD [facility] Medical 12/14/2020 12:00:00 AM EDT [facility] ([facility]) Kevin Faria MD: [address] [place] [address], Ph. Attender: Kevin Faria MD [facility] Medical 12/14/2020 12:00:00 AM EDT [facility] ([facility]) GEORGI TiptonBC: [address] [place] [address], Ph. Attender: Agnieszka MORALES [facility] Medical 12/06/2020 12:00:00 AM EDT [facility] ([facility]) VALERIY Tipton: [address] [place] [address], Ph. [facility] 12/06/2020 12:00:00 AM EDT [facility] ([facility]) Agnieszka Darden [facility]: [address], [place] [address], Ph. Attender: Agnieszka Darden [facility] Medical 12/06/2020 12:00:00 AM EDT [facility]) Agnieszka Darden [facility]: [address], [place] [address], Ph. Attender: Agnieszka Darden [facility] Medical 12/06/2020 12:00:00 AM EDT [facility]) Agnieszka Darden [facility]: [address], [place] [address], Ph. Attender: Agnieszka Darden [facility] Medical 12/06/2020 12:00:00 AM EDT [facility]) Outpatient Attender: JUAN C DOUGLAS NP 11/01 03:37:42 PM EDT - 11/19/2020 05:03:02 PM EDT Mike ([facility] ) Immunizations Vaccine Date Status Description Data Source(s) HPV9 02/18/2021 02:22:00 PM EDT completed 02/18/2021 0.5 mL [facility]) HPV9 12/17/2020 12:41:00 PM EDT completed 12/17/2020 0.5 mL [facility]) HPV9 12/17/2020 12:41:00 PM EDT completed 12/17/2020 0.5 mL [facility]) HPV9 12/17/2020 12:41:00 PM EDT completed 12/17/2020 0.5 mL [facility]) HPV9 12/17/2020 12:41:00 PM EDT completed 12/17/2020 0.5 mL [facility]) COVID-19, mRNA, LNP-S, PF, 100 mcg/0.5 mL dose 08/17/2020 12 :00:00 AM EDT completed 08/17/2020 [facility] ([facility]) COVID-19, mRNA, LNP-S, PF, 100 mcg/0.5 mL dose 08/17/2020 12 :00:00 AM EDT completed 08/17/2020 [place] ([facility]) COVID-19, mRNA, LNP-S, PF, 100 mcg/0.5 mL dose 08/17/2020 12 :00:00 AM EDT completed 08/17/2020 [place] ([facility]) COVID-19, mRNA, LNP-S, PF, 100 mcg/0.5 mL dose 08/17/2020 12 :00:00 AM EDT completed 08/17/2020 [place] ([facility]) COVID-19, mRNA, LNP-S, PF, 100 mcg/0.5 mL dose 08/17/2020 12 :00:00 AM EDT completed 08/17/2020 [place] ([facility]) COVID-19, mRNA, LNP-S, PF, 100 mcg/0.5 mL dose 07/20/2020 12 :00:00 AM EDT completed 07/20/2020 [place] ([facility]) COVID-19, mRNA, LNP-S, PF, 100 mcg/0.5 mL dose 07/20/2020 12 :00:00 AM EDT completed 07/20/2020 [facility] ([facility]) COVID-19, mRNA, LNP-S, PF, 100 mcg/0.5 mL dose 07/20/2020 12 :00:00 AM EDT completed 07/20/2020 [facility] ([facility]) COVID-19, mRNA, LNP-S, PF, 100 mcg/0.5 mL dose 07/20/2020 12 :00:00 AM EDT completed 07/20/2020 [place] ([facility]) COVID-19, mRNA, LNP-S, PF, 100 mcg/0.5 mL dose 07/20/2020 12 :00:00 AM EDT completed 07/20/2020 [facility]) Medications Medication Brand Name Start Date Product Form Dose Route Admi nistrative Instructions Pharmacy Instructions Status Indications Reaction Description Data Source(s) Clenpiq 10 mg-3.5 gram-12 gram/160 mL oral solution [id number] 02/18/2021 12:00:00 AM EDT completed citric acid 75 MG/ML / magnesium oxide 21.9 MG/ML / picosulfate sodium 0.0625 MG/ML Oral Solution [Clenpiq] [place] ([facility]) Bisacodyl 5 MG Delayed Release Oral Tablet [Dulcolax] Dulcol ax 01/22/2021 12:00:00 AM EDT ORAL active M [facility] ([facility], ) Clenpiq Clenpiq 01/22/2021 12:00:00 AM EDT active [facility] ([facility], ) Fluconazole 150 MG Oral Tablet fluconazole 150 mg tabl et fluconazole 150 mg tablet completed fluconazole 150 MG Oral Tablet [facility]) Metronidazole 500 MG Oral Tablet metronidazole 500 mg tablet metronidazole 500 mg tablet completed metronidazol e 500 MG Oral Tablet [facility]) Metronidazole 0.0075 MG/MG Vaginal Gel metronidazole 0 .75 % vaginal gel metronidazole 0.75 % vaginal gel compl eted metronidazole 0.0075 MG/MG Vaginal Gel [facility]) Fluconazole 150 MG Oral Tablet fluconazole 150 mg tabl et fluconazole 150 mg tablet completed fluconazole 150 MG Oral Tablet [facility]) Metronidazole 0.0075 MG/MG Vaginal Gel metronidazole 0 .75 % vaginal gel metronidazole 0.75 % vaginal gel compl eted metronidazole 0.0075 MG/MG Vaginal Gel [facility]) Metronidazole 500 MG Oral Tablet metronidazole 500 mg tablet metronidazole 500 mg tablet completed metronidazol e 500 MG Oral Tablet [facility]) Clindamycin 20 MG/ML Vaginal Cream clindamycin 2 % vag inal cream clindamycin 2 % vaginal cream completed clindam ycin 20 MG/ML Vaginal Cream [facility]) Fluconazole 150 MG Oral Tablet fluconazole 150 mg tabl et fluconazole 150 mg tablet completed fluconazole 150 MG Oral Tablet [facility]) Clindamycin 20 MG/ML Vaginal Cream clindamycin 2 % vag inal cream clindamycin 2 % vaginal cream completed clindam ycin 20 MG/ML Vaginal Cream [place] ([facility]) Fluconazole 150 MG Oral Tablet fluconazole 150 mg tabl et fluconazole 150 mg tablet completed fluconazole 150 MG Oral Tablet [place] ([facility]) Clindamycin 20 MG/ML Vaginal Cream clindamycin 2 % vag inal cream clindamycin 2 % vaginal cream completed clindam ycin 20 MG/ML Vaginal Cream [place] ([facility]) Metronidazole 0.0075 MG/MG Vaginal Gel metronidazole 0 .75 % vaginal gel metronidazole 0.75 % vaginal gel compl eted metronidazole 0.0075 MG/MG Vaginal Gel [place] ([facility]) Fluconazole 150 MG Oral Tablet fluconazole 150 mg tabl et fluconazole 150 mg tablet completed fluconazole 150 MG Oral Tablet [place] ([facility]) Metronidazole 500 MG Oral Tablet metronidazole 500 mg tablet metronidazole 500 mg tablet completed metronidazol e 500 MG Oral Tablet [facility]) Metronidazole 0.0075 MG/MG Vaginal Gel metronidazole 0 .75 % vaginal gel metronidazole 0.75 % vaginal gel compl eted metronidazole 0.0075 MG/MG Vaginal Gel [place] ([facility]) Metronidazole 500 MG Oral Tablet metronidazole 500 mg tablet metronidazole 500 mg tablet completed metronidazol e 500 MG Oral Tablet [place] ([facility]) Clindamycin 20 MG/ML Vaginal Cream clindamycin 2 % vag inal cream clindamycin 2 % vaginal cream completed clindam ycin 20 MG/ML Vaginal Cream [facility]) Clindamycin 20 MG/ML Vaginal Cream clindamycin 2 % vag inal cream clindamycin 2 % vaginal cream completed clindam ycin 20 MG/ML Vaginal Cream [place] ([facility]) Metronidazole 0.0075 MG/MG Vaginal Gel metronidazole 0 .75 % vaginal gel metronidazole 0.75 % vaginal gel compl eted metronidazole 0.0075 MG/MG Vaginal Gel [facility] ([facility]) Insurance Providers Payer name Policy type / Coverage type Policy ID Covered libertarian ID Covered libertarian's relationship to malone Policy Malone Plan Information BCBS [place] [employer]BS [place] [id number] Kuli Kuli. [id number] Self [id number] [employer] and Blue Shield - [place] Blue Cross/B lue Shield [id number] Self [id number] [place] PPO 302/[id number] SP [id number] [place] PPO 302/307 [id number] SP [id number] Problems, Conditions, and Diagnoses Code Display Name Description Problem Type Effective Dates Data Source(s) 75528494 Allergic asthma without status asthmatic us Allergic asthma without status asthmaticus Problem 01/22/2021 12:00:00 AM EDT [facility], ) [id number] Human papilloma virus infection Human Papilloma Virus Infection Problem 12/21/2020 12:00:00 AM EDT [place] ([facility]) [id number] Human papilloma virus infection Human Papilloma Virus Infection Problem 12/21/2020 12:00:00 AM EDT [place] ([facility]) Surgeries/Procedures No Information Results ID Date Data Source [id number] 12/25/2020 07:30:00 AM EDT [facility] Name Value Range Interpretation Code Description Data Jyothi rce(s) Supporting Document(s) SARS-CoV-2 RNA Resp Ql JAMILA+probe NOT DETECTED [facility] This lab was ordered by TAWNYA hammonds and reported by TAWNYA Alva. ID Date Data Source [id number] 12/21/2020 12:00:00 AM EDT [place] ([facility]) Name Value Range Interpretation Code Description Data Jyothi rce(s) Supporting Document(s) Clinical information Clinical Inform ation: [place] ([facility]) Last menstrual period start date Lmp : [place] ([facility]) Specimen source [Identifier] in Cervical or vaginal smear or scraping by Cyto stain Source: [place] ([facility]) Date of previous PAP smear Prev. Pap : [place] ([facility]) Date of previous biopsy Prev. 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[facility]) Microscopic observation [Identifier] in Cervix by Cyto stain Interpretation/result: [facility] ([facility]) comment Comment [facility] ([facility]) Burn Center Nurse who read Cyto stain of Cervical or vaginal smear or scra ping Review Otr Tanker Truck Driver: [place] ([facility]) Neisseria gonorrhoeae rRNA [Presence] in Unspecified specimen by Probe and target amplification method not detected not detected Neis seria Gonorrhoeae RNA, Tma, Urogenital [place] ([facility]) Chlamydia trachomatis rRNA [Presence] in Unspecified specimen by Probe and target amplification method not detected not detected Chla mydia Trachomatis RNA, Tma, Urogenital [place] ([facility]) Human papilloma virus E6+E7 mRNA [Presen ce] in Cervix by Probe and target amplification method detected not detected Abnormal (applies t o non-numeric results) Hpv Mrna E6/E7 [place] ([facility]) comment Comment [facility] ([facility]) Trichomonas vaginalis rRNA [Presence] in Unspecified specimen by Probe and target amplification method not detected not detected Tric homonas Vaginalis, Ql Tma, Pap Vial [place] ([facility]) ID Date Data Source [id number] 12/21/2020 12:00:00 AM EDT [place] ([facility]) Name Value Range Interpretation Code Description Data Jyothi rce(s) Supporting Document(s) Clinical information Clinical Inform ation: [facility] ([facility]) Last menstrual period start date Lmp : [place] ([facility]) Date of previous PAP smear Prev. Pap : [place] ([facility]) Specimen source [Identifier] in Cervical or vaginal smear or scraping by Cyto stain Source: [facility] ([facility]) Date of previous biopsy Prev. BX: A THENDavid ([facility]) Microscopic observation [Identifier] in Cervix by Cyto stain Interpretation/result: [facility] ([facility]) Microorganism identified in Cervical or vaginal smear or scraping by Cyto stain Infection: [place] ([facility]) Cytology study comment Cervical or vaginal smear or scraping Cyto s tain Comment: [place] ([facility]) Statement of adequacy [Interpretation] o f Cervical or vaginal smear or scraping by Cyto stain Statement of Adequacy: JENELLE PAULINO ([facility]) Burn Center Nurse who read Cyto stain of Cervical or vaginal smear or scra ping Review [employer]tr [employer]: [place] ([facility]) comment Comment [place] ([facility]) Burn Center Nurse who read Cyto stain of Cervical or vaginal smear or scra ping Otr [employer]er Truck Driver: [place] ([facility]) Human papilloma virus E6+E7 mRNA [Presen ce] in Cervix by Probe and target amplification method detected not detected Abnormal (applies t o non-numeric results) Hpv Mrna E6/E7 [place] ([facility]) Neisseria gonorrhoeae rRNA [Presence] in Unspecified specimen by Probe and target amplification method not detected not detected Neis seria Gonorrhoeae RNA, Tma, Urogenital [place] ([facility]) Chlamydia trachomatis rRNA [Presence] in Unspecified specimen by Probe and target amplification method not detected not detected Chla mydia Trachomatis RNA, Tma, Urogenital [place] ([facility]) comment Comment [place] ([facility]) Trichomonas vaginalis rRNA [Presence] in Unspecified specimen by Probe and target amplification method not detected not detected Tric homonas Vaginalis, Ql Tma, Pap Vial [place] ([facility]) ID Date Data Source [id number] 12/17/2020 12:00:00 AM EDT [place] ([facility]) Name Value Range Interpretation Code Description Data Jyotih rce(s) Supporting Document(s) Hemoglobin A1c/Hemoglobin.total in Blood 5.8 %_of_total_HGB <5.7 Above high normal Hemoglobin a1C [place] ([facility]) ID Date Data Source [id number] 12/17/2020 12:00:00 AM EDT [place] ([facility]) Name Value Range Interpretation Code Description Data Jyothi rce(s) Supporting Document(s) Calcidiol [Mass/volume] in Serum or Plasma 36 NG/mL 30-100 Vitamin D,25-Oh,total,ia [facility]) ID Date Data Source [id number] 12/17[facility]2020 12[facility]00 [facility] Name Value Range Interpretation Code Description Data Jyothi rce(s) Supporting Document(s) Cobalamin (Vitamin B12) [Mass/volume] in Serum or Plasma 601 pg/mL 200-1100 Vitamin B12 [place] ([facility]) Folate [Mass/volume] in Serum or Plasma >24.0 Folate, Serum [facility]) ID Date Data Source [id number] 12/17/2020 12:00:00 AM EDT [place] ([facility]) Name Value Range Interpretation Code Description Data Jyothi rce(s) Supporting Document(s) Hepatitis C virus Ab [Presence] in Serum or Plasma by Immuno assay non-reactive non-reactive Hepatitis C Antibody [facility] ([facility]) Hepatitis C virus Ab Signal/Cutoff in Serum or Plasma by Immunoassa y <1.00 Index [facility] ([facility]) ID Date Data Source [id number] 12/17/2020 12:00:00 AM EDT [place] ([facility]) Name Value Range Interpretation Code Description Data Jyothi rce(s) Supporting Document(s) Leukocytes [#/volume] in Blood by Automated count 5.0 thousand/uL 3 .8-10.8 White Blood Cell Count [facility] ([facility]) Erythrocytes [#/volume] in Blood by Automated count 4.54 million/uL 3.80-5.10 Red Blood Cell Count [facility] ([facility]) Hematocrit [Volume Fraction] of Blood by Automated count 37.2 % 35.0-45.0 Hematocrit [facility] ([facility]) Hemoglobin [Mass/volume] in Blood 12.2 g/dL 11.7-15.5 He moglobin [facility] ([facility]) Erythrocyte mean corpuscular volume [Entitic volume] by Auto mated count 81.9 fL 80.0-100.0 Mcv [facility] ([facility]) Erythrocyte mean corpuscular hemoglobin concentration [Mass/volume] by Automated count 32.8 g/dL 32.0-36.0 Mchc [facility] ([facility]) Erythrocyte distribution width [Ratio] by Automated count 14.2 % 11.0-15.0 Rdw [facility] ([facility]) Erythrocyte mean corpuscular hemoglobin [Entitic mass] by Automated count 26.9 pg 27.0-33.0 Below low normal Mch [facility] ([facility]) Platelet mean volume [Entitic volume] in Blood by Amos-Celso 10.6 f L 7.5-12.5 Mpv [facility] ([facility]) Lymphocytes [#/volume] in Blood by Automated count 2050 cells/uL 85 0-3900 Absolute Lymphocytes [facility] ([facility]) Neutrophils [#/volume] in Blood by Automated count 2165 cells/uL 15 00-7800 Absolute Neutrophils [facility] ([facility]) Platelets [#/volume] in Blood by Automated count 288 thousand/uL 14 0-400 Platelet Count [facility] ([facility]) Monocytes [#/volume] in Blood by Automated count 545 cells/uL 200-9 50 Absolute Monocytes [facility] ([facility]) Eosinophils [#/volume] in Blood by Automated count 150 cells/uL 15- 500 Absolute Eosinophils [facility] ([facility]) Basophils [#/volume] in Blood by Automated count 90 cells/uL 0-200 Absolute Basophils [facility] ([facility]) Neutrophils/100 leukocytes in Blood by Automated count 43.3 % 38-80 Neutrophils [facility] ([facility]) Eosinophils/100 leukocytes in Blood by Automated count 3.0 % 0-8 Eosinophils [facility] ([facility]) Monocytes/100 leukocytes in Blood by Automated count 10.9 % 0-13 Monocytes [facility] ([facility]) Lymphocytes/100 leukocytes in Blood by Automated count 41.0 % 15-49 Lymphocytes [facility] ([facility]) Basophils/100 leukocytes in Blood by Automated count 1.8 % 0-2 Basophils [facility] ([facility]) ID Date Data Source [id number] 12/17/2020 12:00:00 AM EDT [facility] ([facility]) Name Value Range Interpretation Code Description Data Jyothi rce(s) Supporting Document(s) Bacteria identified in Urine by Culture Reflexive Urine Culture [facility] ([facility]) ID Date Data Source [id number] 12/17/2020 12:00:00 AM EDT [place] ([facility]) Name Value Range Interpretation Code Description Data Jyothi rce(s) Supporting Document(s) Appearance of Urine clear clear Appearance ATHEN A ([facility]) Color of Urine dark yellow yellow Color [facility] ([facility]) Specific gravity of Urine by Test strip 1.001-1.035 Specific Cowen [facility] ([facility]) pH of Urine by Test strip 5.0-8.0 Ph [facility] ([facility]) Glucose [Presence] in Urine by Test strip negative negative Glucose [facility] ([facility]) Bilirubin.total [Presence] in Urine by Test strip negative negative Bilirubin [facility] ([facility]) Hemoglobin [Presence] in Urine by Test strip negative negative Occult Blood [facility] ([facility]) Ketones [Presence] in Urine by Test strip negative negative Ketones [facility] ([facility]) Protein [Presence] in Urine by Test strip negative negative Protein [facility] ([facility]) Leukocyte esterase [Presence] in Urine by Test strip negative n egative Leukocyte Esterase [facility] ([facility]) Epithelial cells.squamous [#/area] in Ur ine sediment by Microscopy high power field 0-5 < or = 5 Squamous Epithelial Cells AT [facility]) Nitrite [Presence] in Urine by Test strip negative negative Nitrite [facility] ([facility]) Triple phosphate crystals [#/area] in Ur ine sediment by Microscopy high power field moderate none or few Abnormal (applies to non-numeric results) Triple Phosphate Crystals [place] ([facility]) Service comment Note [place] ([facility]) ID Date Data Source [id number] 12/17/2020 12:00:00 AM EDT [place] ([facility]) Name Value Range Interpretation Code Description Data Jyothi rce(s) Supporting Document(s) Glucose [Mass/volume] in Serum or Plasma 98 mg/dL 65-99 Glucose [facility] ([facility]) Creatinine [Mass/volume] in Serum or Plasma 0.77 mg/dL 0.50-1.05 Creatinine [place] ([facility]) Urea nitrogen [Mass/volume] in Serum or Plasma 13 mg/dL 7-25 Urea Nitrogen (BUN) [facility]) Glomerular filtration rate/1.73 sq M.pre dicted among blacks [Volume Rate/Area] in Serum, Plasma or Blood by Creatinine-based formula (CKD-EPI) 99 mL/min/1.73m2 > or = 60 eGFR [facility] ([facility]) Glomerular filtration rate/1.73 sq M.pre dicted among non-blacks [Volume Rate/Area] in Serum, Plasma or Blood by Creatinine-based formula (CKD-EPI) 85 mL/min/1.73m2 > or = 60 eGFR Non-afr. Eritrean [facility] ([facility]) Sodium [Moles/volume] in Serum or Plasma 139 mmol/L 135-146 Sodium [facility] ([facility]) Urea nitrogen/Creatinine [Mass Ratio] in Serum or Plasma not applic able 6-22 BUN/creatinine Ratio [facility] ([facility]) Potassium [Moles/volume] in Serum or Plasma 4.5 mmol/L 3.5-5.3 Potassium [facility]) Chloride [Moles/volume] in Serum or Plasma 103 mmol/L 98-110 Chloride [facility]) Calcium [Mass/volume] in Serum or Plasma 9.2 mg/dL 8.6-10.4 Calcium [facility]) Carbon dioxide, total [Moles/volume] in Serum or Plasma 32 mmol/L 20-32 Carbon Dioxide [place] ([facility]) Albumin/Globulin [Mass Ratio] in Serum or Plasma 1.5 (calc) 1.0-2 .5 Albumin/globulin Ratio [place] ([facility]) Albumin [Mass/volume] in Serum or Plasma 4.2 g/dL 3.6-5.1 Albumin [facility] ([facility]) Globulin [Mass/volume] in Serum by calculation 2.8 g/dL_(calc) 1.9- 3.7 Globulin [place] ([facility]) Protein [Mass/volume] in Serum or Plasma 7.0 g/dL 6.1-8.1 Protein, Total [place] ([facility]) Bilirubin.total [Mass/volume] in Serum or Plasma 0.5 mg/dL 0.2-1 .2 Bilirubin, Total [place] ([facility]) Aspartate aminotransferase [Enzymatic activity/volume] in Serum or Plasma 15 U/L 10-35 Ast [facility] ([facility]) Alkaline phosphatase [Enzymatic activity/volume] in Serum or Plasma 73 U/L 37-153 Alkaline Phosphatase [place] ([facility]) Alanine aminotransferase [Enzymatic activity/volume] in Seru m or Plasma 15 U/L 6-29 Alt [facility] ([facility]) ID Date Data Source [id number] 12/17/2020 12:00:00 AM EDT [facility]) Name Value Range Interpretation Code Description Data Jyothi rce(s) Supporting Document(s) Thyrotropin [Units/volume] in Serum or Plasma 3.60 mIU/L 0.40-4.50 Tsh [place] ([facility]) Thyroxine (T4) free [Mass/volume] in Serum or Plasma 1.0 NG/dL 0 .8-1.8 T4, Free [facility]) ID Date Data Source [id number] 12/17/2020 12:00:00 AM EDT [facility]) Name Value Range Interpretation Code Description Data Jyothi rce(s) Supporting Document(s) HIV 1+2 Ab+HIV1 p24 Ag [Presence] in Serum or Plasma b y Immunoassay non-reactive non-reactive HIV Ag/Ab, 4TH Gen [facility] ([facility]) ID Date Data Source [id number] 12/17/2020 12:00:00 AM EDT [place] ([facility]) Name Value Range Interpretation Code Description Data Jyothi rce(s) Supporting Document(s) Cholesterol [Mass/volume] in Serum or Plasma 231 mg/dL <200 Above high normal Cholesterol, Total [facility] ([facility]) Cholesterol in HDL [Mass/volume] in Serum or Plasma 61 mg/dL > or = 50 HDL Cholesterol [facility] ([facility]) Cholesterol in LDL [Mass/volume] in Serum or Plasma by calculation 138 mg/dL_(calc) Above high normal LDL-cholesterol [facility] ([facility]) Triglyceride [Mass/volume] in Serum or Plasma 182 mg/dL <150 Above high normal Triglycerides [facility] ([facility]) Cholesterol.total/Cholesterol in HDL [Mass Ratio] in Serum o r Plasma 3.8 (calc) <5.0 Chol/hdlc Ratio [facility] ([facility]) Cholesterol non HDL [Mass/volume] in Serum or Plasma 170 mg/dL_( calc) <130 Above high normal Non HDL Cholesterol [facility] ([facility]) ID Date Data Source [id number] 12/17/2020 12:00:00 AM EDT [facility]) Name Value Range Interpretation Code Description Data Jyothi rce(s) Supporting Document(s) Iron [Mass/volume] in Serum or Plasma 81 mcg/dL 45-160 Iron, Total [facility] ([facility]) Iron binding capacity [Mass/volume] in Serum or Plasma 375 m cg/dL_(calc) 250-450 Iron Binding Capacity [facility] ([facility]) Iron saturation [Mass Fraction] in Serum or Plasma 22 %_(calc) 16- 45 % Saturation [facility] ([facility]) Ferritin [Mass/volume] in Serum or Plasma 9 NG/mL 16-232 Below low normal Ferritin [facility] ([facility]) ID Date Data Source [id number] 12/17/2020 12:00:00 AM EDT [facility]) Name Value Range Interpretation Code Description Data Jyothi rce(s) Supporting Document(s) Hemoglobin A1c/Hemoglobin.total in Blood 5.8 %_of_total_HGB <5.7 Above high normal Hemoglobin a1C [facility] ([facility]) ID Date Data Source [id number] 12/17/2020 12:00[facility]00 [facility] Name Value Range Interpretation Code Description Data Jyothi rce(s) Supporting Document(s) Calcidiol [Mass/volume] in Serum or Plasma 36 NG/mL 30-100 Vitamin D,25-Oh,total,ia [facility]) ID Date Data Source [id number] 12/17/2020 12:00[facility]00 [facility] Name Value Range Interpretation Code Description Data Jyothi rce(s) Supporting Document(s) Cobalamin (Vitamin B12) [Mass/volume] in Serum or Plasma 601 pg/mL 200-1100 Vitamin B12 [place] ([facility]) Folate [Mass/volume] in Serum or Plasma >24.0 Folate, Serum [facility]) ID Date Data Source [id number] 12/17/2020 12:00:00 AM EDT [facility] ([facility]) Name Value Range Interpretation Code Description Data Jyothi rce(s) Supporting Document(s) Hepatitis C virus Ab [Presence] in Serum or Plasma by Immuno assay non-reactive non-reactive Hepatitis C Antibody [facility] ([facility]) Hepatitis C virus Ab Signal/Cutoff in Serum or Plasma by Immunoassa y <1.00 [facility] ID Date Data Source [id number] 12/17/2020 12:00:00 AM EDT [facility] ([facility]) Name Value Range Interpretation Code Description Data Jyothi rce(s) Supporting Document(s) Leukocytes [#/volume] in Blood by Automated count 5.0 thousand/uL 3 .8-10.8 White Blood Cell Count [facility] ([facility]) Hemoglobin [Mass/volume] in Blood 12.2 g/dL 11.7-15.5 He moglobin [facility] ([facility]) Erythrocytes [#/volume] in Blood by Automated count 4.54 million/uL 3.80-5.10 Red Blood Cell Count [facility] ([facility]) Erythrocyte mean corpuscular volume [Entitic volume] by Auto mated count 81.9 fL 80.0-100.0 Mcv [facility] ([facility]) Hematocrit [Volume Fraction] of Blood by Automated count 37.2 % 35.0-45.0 Hematocrit [facility] ([facility]) Erythrocyte mean corpuscular hemoglobin [Entitic mass] by Automated count 26.9 pg 27.0-33.0 Below low normal Mch [facility] ([facility]) Erythrocyte mean corpuscular hemoglobin concentration [Mass/volume] by Automated count 32.8 g/dL 32.0-36.0 Mchc [facility] ([facility]) Erythrocyte distribution width [Ratio] by Automated count 14.2 % 11.0-15.0 Rdw [facility] ([facility]) Platelets [#/volume] in Blood by Automated count 288 thousand/uL 14 0-400 Platelet Count [facility] ([facility]) Platelet mean volume [Entitic volume] in Blood by Andi 10.6 f L 7.5-12.5 Mpv [facility] ([facility]) Neutrophils [#/volume] in Blood by Automated count 2165 cells/uL 15 00-7800 Absolute Neutrophils [facility] ([facility]) Monocytes [#/volume] in Blood by Automated count 545 cells/uL 200-9 50 Absolute Monocytes [facility] ([facility]) Lymphocytes [#/volume] in Blood by Automated count 2050 cells/uL 85 0-3900 Absolute Lymphocytes [facility] ([facility]) Eosinophils [#/volume] in Blood by Automated count 150 cells/uL 15- 500 Absolute Eosinophils [facility] ([facility]) Basophils [#/volume] in Blood by Automated count 90 cells/uL 0-200 Absolute Basophils [facility] ([facility]) Neutrophils/100 leukocytes in Blood by Automated count 43.3 % 38-80 Neutrophils [facility] ([facility]) Lymphocytes/100 leukocytes in Blood by Automated count 41.0 % 15-49 Lymphocytes [facility] ([facility]) Monocytes/100 leukocytes in Blood by Automated count 10.9 % 0-13 Monocytes [facility] ([facility]) Eosinophils/100 leukocytes in Blood by Automated count 3.0 % 0-8 Eosinophils [facility] ([facility]) Basophils/100 leukocytes in Blood by Automated count 1.8 % 0-2 Basophils [facility] ([facility]) ID Date Data Source [id number] 12/17/2020 12:00:00 AM EDT [facility]) Name Value Range Interpretation Code Description Data Jyothi rce(s) Supporting Document(s) Bacteria identified in Urine by Culture [facility] ID Date Data Source [id number] 12/17/2020 12:00:00 AM EDT [facility]) Name Value Range Interpretation Code Description Data Jyothi rce(s) Supporting Document(s) Color of Urine dark yellow yellow Color [facility] ([facility]) Appearance of Urine clear clear Appearance ATHEN A ([facility]) Specific gravity of Urine by Test strip 1.001-1.035 Specific [place] [facility] ([facility]) pH of Urine by Test strip 5.0-8.0 Ph [facility] ([facility]) Glucose [Presence] in Urine by Test strip negative negative Glucose [facility] ([facility]) Bilirubin.total [Presence] in Urine by Test strip negative negative Bilirubin [facility] ([facility]) Ketones [Presence] in Urine by Test strip negative negative Ketones [facility] ([facility]) Protein [Presence] in Urine by Test strip negative negative Protein [facility] ([facility]) Nitrite [Presence] in Urine by Test strip negative negative Nitrite [facility] ([facility]) Hemoglobin [Presence] in Urine by Test strip negative negative Occult Blood [facility] ([facility]) Epithelial cells.squamous [#/area] in Ur ine sediment by Microscopy high power field 0-5 < or = 5 Squamous Epithelial Cells AT [facility] ([facility]) Leukocyte esterase [Presence] in Urine by Test strip negative n egative Leukocyte Esterase [facility] ([facility]) Triple phosphate crystals [#/area] in Ur ine sediment by Microscopy high power field moderate none or few Abnormal (applies to non-numeric results) Triple Phosphate Crystals [place] ([facility]) Service comment Note [facility]) ID Date Data Source [id number] 12/17/2020 12:00:00 AM EDT [place] ([facility]) Name Value Range Interpretation Code Description Data Jyothi rce(s) Supporting Document(s) Glucose [Mass/volume] in Serum or Plasma 98 mg/dL 65-99 Glucose [place] ([facility]) Urea nitrogen [Mass/volume] in Serum or Plasma 13 mg/dL 7-25 Urea Nitrogen (BUN) [place] ([facility]) Creatinine [Mass/volume] in Serum or Plasma 0.77 mg/dL 0.50-1.05 Creatinine [facility]) Glomerular filtration rate/1.73 sq M.pre dicted among non-blacks [Volume Rate/Area] in Serum, Plasma or Blood by Creatinine-based formula (CKD-EPI) 85 mL/min/1.73m2 > or = 60 eGFR Non-afr. Eritrean [facility] ([facility]) Glomerular filtration rate/1.73 sq M.pre dicted among blacks [Volume Rate/Area] in Serum, Plasma or Blood by Creatinine-based formula (CKD-EPI) 99 mL/min/1.73m2 > or = 60 eGFR [facility] ([facility]) Urea nitrogen/Creatinine [Mass Ratio] in Serum or Plasma not applic able 6-22 BUN[facility]creatinine [facility] Sodium [Moles/volume] in Serum or Plasma 139 mmol/L 135-146 Sodium [facility]) Potassium [Moles/volume] in Serum or Plasma 4.5 mmol/L 3.5-5.3 Potassium [facility] ([facility]) Chloride [Moles/volume] in Serum or Plasma 103 mmol/L 98-110 Chloride [facility] ([facility]) Carbon dioxide, total [Moles/volume] in Serum or Plasma 32 mmol/L 20-32 Carbon Dioxide [facility] ([facility]) Calcium [Mass/volume] in Serum or Plasma 9.2 mg/dL 8.6-10.4 Calcium [place] ([facility]) Protein [Mass/volume] in Serum or Plasma 7.0 g/dL 6.1-8.1 Protein, Total [place] ([facility]) Albumin [Mass/volume] in Serum or Plasma 4.2 g/dL 3.6-5.1 Albumin [place] ([facility]) Globulin [Mass/volume] in Serum by calculation 2.8 g/dL_(calc) 1.9- 3.7 Globulin [place] ([facility]) Albumin/Globulin [Mass Ratio] in Serum or Plasma 1.5 (calc) 1.0-2 .5 Albumin/globulin Ratio [place] ([facility]) Bilirubin.total [Mass/volume] in Serum or Plasma 0.5 mg/dL 0.2-1 .2 Bilirubin, Total [place] ([facility]) Alkaline phosphatase [Enzymatic activity/volume] in Serum or Plasma 73 U/L 37-153 Alkaline Phosphatase [place] ([facility]) Aspartate aminotransferase [Enzymatic activity/volume] in Serum or Plasma 15 U/L 10-35 Ast [place] ([facility]) Alanine aminotransferase [Enzymatic activity/volume] in Seru m or Plasma 15 U/L 6-29 Alt [facility] ([facility]) ID Date Data Source [id number] 12/17/2020 12:00:00 AM EDT [place] ([facility]) Name Value Range Interpretation Code Description Data Jyothi rce(s) Supporting Document(s) Thyrotropin [Units/volume] in Serum or Plasma 3.60 mIU/L 0.40-4.50 Tsh [place] ([facility]) Thyroxine (T4) free [Mass/volume] in Serum or Plasma 1.0 NG/dL 0 .8-1.8 T4, Free [place] ([facility]) ID Date Data Source [id number] 12/17/2020 12:00:00 AM EDT [facility]) Name Value Range Interpretation Code Description Data Jyothi rce(s) Supporting Document(s) HIV 1+2 Ab+HIV1 p24 Ag [Presence] in Serum or Plasma b y Immunoassay non-reactive non-reactive HIV Ag/Ab, 4TH Gen [facility]) ID Date Data Source [id number] 12/17/2020 12:00:00 AM EDT [facility]) Name Value Range Interpretation Code Description Data Jyothi rce(s) Supporting Document(s) Cholesterol in HDL [Mass/volume] in Serum or Plasma 61 mg/dL > or = 50 HDL Cholesterol [facility]) Cholesterol [Mass/volume] in Serum or Plasma 231 mg/dL <200 Above high normal Cholesterol, Total [facility] ([facility]) Triglyceride [Mass/volume] in Serum or Plasma 182 mg/dL <150 Above high normal Triglycerides [place] ([facility]) Cholesterol.total/Cholesterol in HDL [Mass Ratio] in Serum o r Plasma 3.8 (calc) <5.0 Chol/hdlc Ratio [place] ([facility]) Cholesterol in LDL [Mass/volume] in Serum or Plasma by calculation 138 mg/dL_(calc) Above high normal LDL-cholesterol [facility] ([facility]) Cholesterol non HDL [Mass/volume] in Serum or Plasma 170 mg/dL_( calc) <130 Above high normal Non HDL Cholesterol [place] ([facility]) ID Date Data Source [id number] 12/17/2020 12:00:00 AM EDT [facility]) Name Value Range Interpretation Code Description Data Jyothi rce(s) Supporting Document(s) Iron [Mass/volume] in Serum or Plasma 81 mcg/dL 45-160 Iron, Total [facility] ([facility]) Iron binding capacity [Mass/volume] in Serum or Plasma 375 m cg/dL_(calc) 250-450 Iron Binding Capacity [facility] ([facility]) Iron saturation [Mass Fraction] in Serum or Plasma 22 %_(calc) 16- 45 % Saturation [facility] ([facility]) Ferritin [Mass/volume] in Serum or Plasma 9 NG/mL 16-232 Below low normal Ferritin [facility] ([facility]) ID Date Data Source [id number] 12/17/2020 12:00:00 AM EDT [facility]) Name Value Range Interpretation Code Description Data Jyothi rce(s) Supporting Document(s) Hemoglobin A1c/Hemoglobin.total in Blood 5.8 %_of_total_HGB <5.7 Above high normal Hemoglobin a1C [facility] ([facility]) ID Date Data Source [id number] 12/17/2020 12:00:00 AM EDT [facility] ([facility]) Name Value Range Interpretation Code Description Data Jyothi rce(s) Supporting Document(s) Calcidiol [Mass/volume] in Serum or Plasma 36 NG/mL 30-100 Vitamin D,25-Oh,total,[facility] ID Date Data Source [id number] 12/17/2020 12:00:00 AM EDT [facility] ([facility]) Name Value Range Interpretation Code Description Data Jyothi rce(s) Supporting Document(s) Cobalamin (Vitamin B12) [Mass/volume] in Serum or Plasma 601 pg/mL 200-1100 Vitamin B12 [facility] ([facility]) Folate [Mass/volume] in Serum or Plasma >24.0 Folate, Serum [facility] ID Date Data Source [id number] 12/17/2020 12:00:00 AM EDT [facility] ([facility]) Name Value Range Interpretation Code Description Data Jyothi rce(s) Supporting Document(s) Hepatitis C virus Ab [Presence] in Serum or Plasma by Immuno assay non-reactive non-reactive Hepatitis C Antibody [facility] ([facility]) Hepatitis C virus Ab Signal/Cutoff in Serum or Plasma by Immunoassa y <1.00 Index [facility] ([facility]) ID Date Data Source [id number] 12/17/2020 12:00:00 AM EDT [facility] ([facility]) Name Value Range Interpretation Code Description Data Jyothi rce(s) Supporting Document(s) Leukocytes [#/volume] in Blood by Automated count 5.0 thousand/uL 3 .8-10.8 White Blood Cell Count [facility] ([facility]) Hematocrit [Volume Fraction] of Blood by Automated count 37.2 % 35.0-45.0 Hematocrit [facility] ([facility]) Hemoglobin [Mass/volume] in Blood 12.2 g/dL 11.7-15.5 He moglobin [facility] ([facility]) Erythrocytes [#/volume] in Blood by Automated count 4.54 million/uL 3.80-5.10 Red Blood Cell Count [facility] ([facility]) Erythrocyte mean corpuscular hemoglobin concentration [Mass/volume] by Automated count 32.8 g/dL 32.0-36.0 Mchc [facility] ([facility]) Erythrocyte mean corpuscular hemoglobin [Entitic mass] by Automated count 26.9 pg 27.0-33.0 Below low normal Mch [facility] ([facility]) Erythrocyte mean corpuscular volume [Entitic volume] by Auto mated count 81.9 fL 80.0-100.0 Mcv [facility] ([facility]) Platelets [#/volume] in Blood by Automated count 288 thousand/uL 14 0-400 Platelet Count [facility] ([facility]) Neutrophils [#/volume] in Blood by Automated count 2165 cells/uL 15 00-7800 Absolute Neutrophils [facility] ([facility]) Erythrocyte distribution width [Ratio] by Automated count 14.2 % 11.0-15.0 Rdw [facility] ([facility]) Platelet mean volume [Entitic volume] in Blood by Amos-Celso 10.6 f L 7.5-12.5 Mpv [facility] ([facility]) Monocytes [#/volume] in Blood by Automated count 545 cells/uL 200-9 50 Absolute Monocytes [facility] ([facility]) Eosinophils [#/volume] in Blood by Automated count 150 cells/uL 15- 500 Absolute Eosinophils [facility] ([facility]) Lymphocytes [#/volume] in Blood by Automated count 2050 cells/uL 85 0-3900 Absolute Lymphocytes [facility] ([facility]) Lymphocytes/100 leukocytes in Blood by Automated count 41.0 % 15-49 Lymphocytes [facility] ([facility]) Neutrophils/100 leukocytes in Blood by Automated count 43.3 % 38-80 [facility]rophils [facility] Basophils [#/volume] in Blood by Automated count 90 cells/uL 0-200 Absolute Basophils [facility] ([facility]) Monocytes/100 leukocytes in Blood by Automated count 10.9 % 0-13 Monocytes [facility] ([facility]) Eosinophils/100 leukocytes in Blood by Automated count 3.0 % 0-8 Eosinophils [facility] ([facility]) Basophils/100 leukocytes in Blood by Automated count 1.8 % 0-2 Basophils [facility] ID Date Data Source [id number] 12/17/2020 12:00:00 AM EDT [facility]) Name Value Range Interpretation Code Description Data Jyothi rce(s) Supporting Document(s) Bacteria identified in Urine by Culture Reflexive Urine Culture [facility] ID Date Data Source [id number] 12/17/2020 12:00:00 AM EDT [facility]) Name Value Range Interpretation Code Description Data Jyothi rce(s) Supporting Document(s) Specific gravity of Urine by Test strip 1.001-1.035 Specific [place] [facility] ([facility]) Color of Urine dark yellow yellow Color [facility] ([facility]) Appearance of Urine clear clear Appearance ATHEN A ([facility]) Bilirubin.total [Presence] in Urine by Test strip negative negative Bilirubin [facility] ([facility]) Glucose [Presence] in Urine by Test strip negative negative Glucose [facility] ([facility]) pH of Urine by Test strip 5.0-8.0 Ph [facility] ([facility]) Ketones [Presence] in Urine by Test strip negative negative Ketones [facility] ([facility]) Protein [Presence] in Urine by Test strip negative negative Protein [facility] ([facility]) Nitrite [Presence] in Urine by Test strip negative negative Nitrite [facility] ([facility]) Hemoglobin [Presence] in Urine by Test strip negative negative Occult Blood [facility] ([facility]) Leukocyte esterase [Presence] in Urine by Test strip negative n egative Leukocyte Esterase [facility] ([facility]) Epithelial cells.squamous [#/area] in Ur ine sediment by Microscopy high power field 0-5 < or = 5 Squamous Epithelial Cells [facility] ([facility]) Triple phosphate crystals [#/area] in Ur ine sediment by Microscopy high power field moderate none or few Abnormal (applies to non-numeric results) Triple Phosphate Crystals [place] ([facility]) Service comment Note [place] ([facility]) ID Date Data Source [id number] 12/17/2020 12:00:00 AM EDT [facility]) Name Value Range Interpretation Code Description Data Jyothi rce(s) Supporting Document(s) Glucose [Mass/volume] in Serum or Plasma 98 mg/dL 65-99 Glucose [facility] ([facility]) Urea nitrogen [Mass/volume] in Serum or Plasma 13 mg/dL 7-25 Urea Nitrogen (BUN) [facility] ([facility]) Creatinine [Mass/volume] in Serum or Plasma 0.77 mg/dL 0.50-1.05 Creatinine [facility] Glomerular filtration rate/1.73 sq M.pre dicted among non-blacks [Volume Rate/Area] in Serum, Plasma or Blood by Creatinine-based formula (CKD-EPI) 85 mL/min/1.73m2 > or = 60 eGFR Non-afr. Eritrean [facility] ([facility]) Urea nitrogen/Creatinine [Mass Ratio] in Serum or Plasma not applic able 6-22 BUN/creatinine Ratio [facility] ([facility]) Sodium [Moles/volume] in Serum or Plasma 139 mmol/L 135-146 Sodium [facility] ([facility]) Glomerular filtration rate/1.73 sq M.pre dicted among blacks [Volume Rate/Area] in Serum, Plasma or Blood by Creatinine-based formula (CKD-EPI) 99 mL/min/1.73m2 > or = 60 eGFR [facility] ([facility]) Chloride [Moles/volume] in Serum or Plasma 103 mmol/L 98-110 Chloride [place] ([facility]) Potassium [Moles/volume] in Serum or Plasma 4.5 mmol/L 3.5-5.3 Potassium [facility] ([facility]) Carbon dioxide, total [Moles/volume] in Serum or Plasma 32 mmol/L 20-32 Carbon Dioxide [place] ([facility]) Calcium [Mass/volume] in Serum or Plasma 9.2 mg/dL 8.6-10.4 Calcium [facility] ([facility]) Protein [Mass/volume] in Serum or Plasma 7.0 g/dL 6.1-8.1 Protein, Total [facility]) Albumin [Mass/volume] in Serum or Plasma 4.2 g/dL 3.6-5.1 Albumin [place] ([facility]) Albumin/Globulin [Mass Ratio] in Serum or Plasma 1.5 (calc) 1.0-2 .5 Albumin/globulin Ratio [place] ([facility]) Globulin [Mass/volume] in Serum by calculation 2.8 g/dL_(calc) 1.9- 3.7 Globulin [facility]) Bilirubin.total [Mass/volume] in Serum or Plasma 0.5 mg/dL 0.2-1 .2 Bilirubin, Total [facility] Alkaline phosphatase [Enzymatic activity/volume] in Serum or Plasma 73 U/L 37-153 [facility] Aspartate aminotransferase [Enzymatic activity/volume] in Serum or Plasma 15 U/L 10-35 Ast [facility] ([facility]) Alanine aminotransferase [Enzymatic activity/volume] in Seru m or Plasma 15 U/L 6-29 Alt [facility] ([facility]) ID Date Data Source [id number] 12/17/2020 12:00:00 AM EDT [facility]) Name Value Range Interpretation Code Description Data Jyothi rce(s) Supporting Document(s) Thyrotropin [Units/volume] in Serum or Plasma 3.60 mIU/L 0.40-4.50 Tsh [place] ([facility]) Thyroxine (T4) free [Mass/volume] in Serum or Plasma 1.0 NG/dL 0 .8-1.8 T4, Free [facility]) ID Date Data Source [id number] 12/17/2020 12:00:00 AM EDT [facility]) Name Value Range Interpretation Code Description Data Jyothi rce(s) Supporting Document(s) HIV 1+2 Ab+HIV1 p24 Ag [Presence] in Serum or Plasma b y Immunoassay non-reactive non-reactive HIV Ag/Ab, 4TH Gen [facility]) ID Date Data Source [id number] 12/17/2020 12:00:00 AM EDT [facility]) Name Value Range Interpretation Code Description Data Jyothi rce(s) Supporting Document(s) Cholesterol [Mass/volume] in Serum or Plasma 231 mg/dL <200 Above high normal Cholesterol, Total [facility] ([facility]) Triglyceride [Mass/volume] in Serum or Plasma 182 mg/dL <150 Above high normal Triglycerides [facility] ([facility]) Cholesterol in HDL [Mass/volume] in Serum or Plasma 61 mg/dL > or = 50 HDL Cholesterol [facility] ([facility]) Cholesterol non HDL [Mass/volume] in Serum or Plasma 170 mg/dL_( calc) <130 Above high normal Non HDL Cholesterol [facility] ([facility]) Cholesterol in LDL [Mass/volume] in Serum or Plasma by calculation 138 mg/dL_(calc) Above high normal LDL-cholesterol [facility] ([facility]) Cholesterol.total/Cholesterol in HDL [Mass Ratio] in Serum o r Plasma 3.8 (calc) <5.0 Chol/hdlc Ratio [facility] ([facility]) ID Date Data Source [id number] 12/17/2020 12:00:00 AM EDT [facility] ([facility]) Name Value Range Interpretation Code Description Data Jyothi rce(s) Supporting Document(s) Iron [Mass/volume] in Serum or Plasma 81 mcg/dL 45-160 Iron, Total [facility] ([facility]) Iron saturation [Mass Fraction] in Serum or Plasma 22 %_(calc) 16- 45 % Saturation [facility] ([facility]) Iron binding capacity [Mass/volume] in Serum or Plasma 375 m cg/dL_(calc) 250-450 Iron Binding Capacity [facility] ([facility]) Ferritin [Mass/volume] in Serum or Plasma 9 NG/mL 16-232 Below low normal Ferritin [facility] ([facility]) Procedure Social History No Information Vital Signs ID Date Data Source [id number] Name Value Range Interpretation Code Description Data Source(s) Diastolic blood pressure 85 mm[Hg] 85 mm[Hg] [facility] ([facility]) Body height 66 [in_i] 66 [in_i] [facility] ([facility]) Body mass index (BMI) [Ratio] 28.9 kg/m2 28.9 k g/m2 AM[facility] ([facility]) Systolic blood pressure 136 mm[Hg] 136 mm[Hg] A THENA ([facility]) Body weight 2866 [oz_av] 2866 [oz_av] [facility] ([facility]) Systolic blood pressure 112 mm[Hg] 112 mm[Hg] M EDAILIN ([facility], ) Diastolic blood pressure 84 mm[Hg] 84 mm[Hg] STEPHANIE ([facility], ) Body height 66 [in_i] 66 [in_i] STEPHANIE ([facility], ) 5'6" Body weight 180.00 [lb_av] 180.00 [lb_av] MEDEN T ([facility]) Body mass index (BMI) [Ratio] 29.0 kg/m2 29.0 k g/m2 [facility] ([facility]) [place] body weight 130 [lb_av] 130 [lb_av] [facility] Body weight 81.648 kg 81.648 kg [facility] ([facility]) Body surface area Derived from formula 1.91 m2 1.91 m2 [facility] ([facility]) Body height 66 [in_i] 66 [in_i] [facility] ([facility]) Body height 66 [in_i] 66 [in_i] [facility] ([facility]) Body height 66 [in_i] 66 [in_i] [facility] ([facility]) Body mass index (BMI) [Ratio] 28.2 kg/m2 28.2 k g/m2 [facility] ([facility]) Systolic blood pressure 132 mm[Hg] 132 mm[Hg] A [facility] ([facility]) Body weight 2792 [oz_av] 2792 [oz_av] [facility] ([facility]) Diastolic blood pressure 72 mm[Hg] 72 mm[Hg] [facility] ([facility]) Diastolic blood pressure 72 mm[Hg] 72 mm[Hg] [facility] ([facility]) Body height 66 [in_i] 66 [in_i] [facility] ([facility]) Body mass index (BMI) [Ratio] 28.2 kg/m2 28.2 k g/m2 [facility] ([facility]) Systolic blood pressure 132 mm[Hg] 132 mm[Hg] A [facility] ([facility]) Body weight 2792 [oz_av] 2792 [oz_av] [facility] ([facility]) Diastolic blood pressure 72 mm[Hg] 72 mm[Hg] [facility] ([facility]) Body height 66 [in_i] 66 [in_i] [facility] ([facility]) Body mass index (BMI) [Ratio] 28.2 kg/m2 28.2 k g/m2 [facility] ([facility]) Systolic blood pressure 132 mm[Hg] 132 mm[Hg] A THENA ([facility]) Body weight 2792 [oz_av] 2792 [oz_av] [facility] ([facility]) Diastolic blood pressure 72 mm[Hg] 72 mm[Hg] [facility] ([facility]) Body height 66 [in_i] 66 [in_i] [facility] ([facility]) Body mass index (BMI) [Ratio] 28.2 kg/m2 28.2 k g/m2 [facility] ([facility]) Systolic blood pressure 132 mm[Hg] 132 mm[Hg] A THENA ([facility]) Body weight 2792 [oz_av] 2792 [oz_av] [facility] ([facility]) Body height 66 [in_i] 66 [in_i] [facility] ([facility]) Body height 66 [in_i] 66 [in_i] [facility] ([facility]) Body height 66 [in_i] 66 [in_i] [facility] ([facility]) Body height 66 [in_i] 66 [in_i] [facility] ([facility]) Body weight 2819.2 [oz_av] 2819.2 [oz_av] ATHEN A ([facility]) Diastolic blood pressure 71 mm[Hg] 71 mm[Hg] [facility] ([facility]) Body height 66 [in_i] 66 [in_i] [facility] ([facility]) Body mass index (BMI) [Ratio] 28.4 kg/m2 28.4 k g/m2 [facility] ([facility]) Systolic blood pressure 134 mm[Hg] 134 mm[Hg] A THENA ([facility]) Diastolic blood pressure 71 mm[Hg] 71 mm[Hg] [facility] ([facility]) Body height 66 [in_i] 66 [in_i] [facility] ([facility]) Body mass index (BMI) [Ratio] 28.4 kg/m2 28.4 k g/m2 [facility] ([facility]) Systolic blood pressure 134 mm[Hg] 134 mm[Hg] A THENA ([facility]) Body weight 2819.2 [oz_av] 2819.2 [oz_av] ATHEMELY A ([facility]) Diastolic blood pressure 71 mm[Hg] 71 mm[Hg] [facility] ([facility]) Body height 66 [in_i] 66 [in_i] [facility] ([facility]) Body mass index (BMI) [Ratio] 28.4 kg/m2 28.4 k g/m2 [facility] ([facility]) Systolic blood pressure 134 mm[Hg] 134 mm[Hg] A JAQUELINE ([facility]) Body weight 2819.2 [oz_av] 2819.2 [oz_av] ATHEMELY A ([facility]) Diastolic blood pressure 71 mm[Hg] 71 mm[Hg] [facility] ([facility]) Body height 66 [in_i] 66 [in_i] [facility] ([facility]) Body mass index (BMI) [Ratio] 28.4 kg/m2 28.4 k g/m2 [facility] ([facility]) Systolic blood pressure 134 mm[Hg] 134 mm[Hg] A JAQUELINE ([facility]) Body weight 2819.2 [oz_av] 2819.2 [oz_av] ATHEMELY A ([facility]) Diastolic blood pressure 71 mm[Hg] 71 mm[Hg] [facility] ([facility]) Body height 66 [in_i] 66 [in_i] [facility] ([facility]) Body mass index (BMI) [Ratio] 28.4 kg/m2 28.4 k g/m2 [facility] ([facility]) Systolic blood pressure 134 mm[Hg] 134 mm[Hg] A JAQUELINE ([facility]) Body weight 2819.2 [oz_av] 2819.2 [oz_av] ATHMEELY A ([facility]) Patient Treatment Plan of Care Planned Activity Planned Date Details Description Data Source (s) Clenpiq 10 mg-3.5 gram-12 gram/160 mL oral solution 02/19/20 12:00:00 AM EDT [facility] ([facility]) Metronidazole 0.0075 MG/MG Vaginal Gel [facility] ([facility]) Fluconazole 150 MG Oral Tablet [facility] ([facility]) Clindamycin 20 MG/ML Vaginal Cream [facility] ([facility]) Metronidazole 500 MG Oral Tablet [facility] ([facility]) Metronidazole 0.0075 MG/MG Vaginal Gel [facility] ([facility]) Fluconazole 150 MG Oral Tablet [facility] ([facility]) Clindamycin 20 MG/ML Vaginal Cream [facility] ([facility]) Metronidazole 500 MG Oral Tablet [facility] ([facility]) Metronidazole 0.0075 MG/MG Vaginal Gel [facility] ([facility]) Fluconazole 150 MG Oral Tablet [facility] ([facility]) Clindamycin 20 MG/ML Vaginal Cream [facility] ([facility]) Metronidazole 500 MG Oral Tablet [facility] ([facility]) Metronidazole 0.0075 MG/MG Vaginal Gel [facility] ([facility]) Fluconazole 150 MG Oral Tablet [facility] ([facility]) Clindamycin 20 MG/ML Vaginal Cream [facility] ([facility]) Metronidazole 500 MG Oral Tablet [facility] ([facility]) Metronidazole 0.0075 MG/MG Vaginal Gel [facility] ([facility]) Fluconazole 150 MG Oral Tablet [facility] ([facility]) Clindamycin 20 MG/ML Vaginal Cream [facility] ([facility])
--- OUTSIDE RECORDS SUMMARY | 2021-03-05 11:07 | CCD ---
Author Organization Unknown Address [address] [place] [address] Phone [phone] Care Team Providers Care Pharmacy Service Associate Name Role Phone Agnieszka Darden Unavailable Unavailable Allergies Code Code System Name Reaction Severity Status Onset NKDA Medications Name Status Start Date Stop Date albuterol sulfate Active Not available clindamycin 2 % vaginal cream Completed escitalopram 20 mg tablet Active Not av ailable fluconazole 150 mg tablet Completed 2020 metronidazole 0.75 % vaginal gel Completed 12/06/2020 metronidazole 500 mg tablet Completed 09/2020 Problems None recorded. Procedures Date Name Performed by 12/06/2020 MAMMO, Screening, Digital, Bilateral [facility] [address] [place], [place] [id number] (Work Place) 12/06/2020 LDCT, Chest, for Lung Cancer Screening S [facility] Oncology/Radiology [address], [place] [id number] (Work Place) Notes: has had 2 colposcopy Results Lab Results Date Name Specimen Result Interpretation Description Value Range Status Address Iron + TIBC + Ferritin, Serum Blood venous Normal Iro n, Total 81 mcg/dL 45-160 mcg/dL Final [facility] gh: [address] [facility] Blood venous Normal Iron Binding Capacity 37 5 mcg/dL (calc) 250-450 mcg/dL (calc) Final [facility]: [address] [facility] Blood venous Normal % Saturation 22 % (calc) 16-4 5 % (calc) Final [facility]: [address] [facility] Blood venous Low Ferritin 9 NG/mL 16-232 NG/mL Final [facility]: [address] [facility] Lipid Panel, Serum Blood venous High Cholesterol, T otal 231 mg/dL <200 mg/dL Final [facility] gh: [address] [facility] Blood venous Normal HDL Cholesterol 61 mg/dL > or = 50 mg/dL Final [facility]: [address] [facility] Blood venous High Triglycerides 182 mg/dL <150 mg/dL [facility]: [address] [facility] Blood venous High LDL-cholesterol 138 mg/dL (ca lc) [facility]: [address] [facility] Blood venous Normal Chol/hdlc Ratio 3.8 (calc) <5 .0 (calc) Final [facility]: [address] [facility] Blood venous High Non HDL Cholesterol 170 mg/dL (calc) <130 mg/dL (calc) Final [facility]: [address] [facility] HIV 1+2 Ab + HIV1 P24 Ag, Quantitative Immunoassay, Serum Normal HIV Ag/Ab, 4TH Gen non-reactive non-reactive Final [facility]: [address] [facility] TSH + Free T4, Serum Blood venous Normal Tsh 3.60 mIU/L 0.40-4.50 mIU/L Final [facility]: [address] [facility] Blood venous Normal T4, Free 1.0 NG/dL 0.8-1.8 NG /dL [facility]: [address] [facility] CMP, Serum or Plasma Blood venous Normal Glucose 98 mg/dL 65-99 mg/dL [facility]: [address] [facility] Blood venous Normal Urea Nitrogen (BUN) 13 mg/dL 7-25 mg/dL [facility]: [address] [facility] Blood venous Normal Creatinine 0.77 mg/dL 0.50-1. 05 mg/dL [facility]: [address] [facility] Blood venous Normal eGFR Non-afr. [place] 8 5 mL/min/1.73m2 > or = 60 mL/min/1.73m2 [facility]: [address] [facility] Blood venous Normal eGFR 99 mL/min/1.73m2 > or = 60 mL/min/1.73m2 Final [facility]: [address] [facility] Blood venous BUN/creatinine Ratio not applicable (calc) 6-22 (calc) [facility] [address] [facility] venous Normal Sodium 139 mmol/L 135-146 mmo l/L Final [facility]: [address] [facility] Blood venous Normal Potassium 4.5 mmol/L 3.5-5.3 mmol/L [facility]: [address] [facility] Blood venous Normal Chloride 103 mmol/L 98-110 mm ol/L [facility]: [address] [facility] Blood venous Normal Carbon Dioxide 32 mmol/L 20-3 2 mmol/L [facility]: [address] [facility] Blood venous Normal Calcium 9.2 mg/dL 8.6-10.4 mg /dL [facility]: [address] [facility] Blood venous Normal Protein, Total 7.0 g/dL 6.1-8 .1 g/dL [facility]: [address] [facility] Blood venous Normal Albumin 4.2 g/dL 3.6-5.1 g/dL [facility]: [address] [facility] Blood venous Normal Globulin 2.8 g/dL (calc) 1.9- 3.7 g/dL (calc) [facility]: [address] [facility] Blood venous Normal Albumin/globulin Ratio 1 .5 (calc) 1.0-2.5 (calc) [facility]: [facility] Blood venous Normal Bilirubin, Total 0.5 mg/dL 0. 2-1.2 mg/dL Final [facility]: [address] [facility] Blood venous Normal Alkaline Phosphatase 73 U/L 3 7-153 U/L Final [facility]: [address] [facility] Blood venous Normal Ast 15 U/L 10-35 U/L Final [facility]: [address] [facility] Blood venous Normal Alt 15 U/L 6-29 U/L Final uest [facility]: [address] [facility] Urinalysis Complete, Reflex Culture Urine Normal Col or dark yellow yellow Final [facility]: [address] [facility] Urine Normal Appearance clear clear Final Ques [facility]: [address] [facility] Urine Normal Specific [place] 1.027 1.001-1.035 Final [facility] Normal Ph 8.0 5.0-8.0 Final [facility]: [address] [facility] Urine Normal Glucose negative negative Final [facility]: [facility] [facility] Urine Normal Bilirubin negative negative Final Q uest [facility]: [address] [facility] Urine Normal Ketones negative negative Final Que [facility]: [address] [place] [facility] Urine Normal Occult Blood negative negative Final [facility]: [address] [facility] Urine Normal Protein negative negative Final Que [facility]: [address] [facility] Urine Normal Nitrite negative negative Final Que [facility]: [address] [place] [facility] Urine Normal Leukocyte Esterase negative negative Final [facility]: [address] [facility] Urine Squamous Epithelial Cells 0-5 /hpf < or = 5 /hpf Final [facility]: [facility] Urine ABNORMAL Triple Phosphate Crystals mod erate /hpf none or few /hpf Final [facility]: [address] , [place] Urine Note Final [facility]: [address] [facility] Culture, Urine Reflexive Urine Culture Final [facility]: [address] [facility] CBC W/ Auto Diff Blood venous Normal White Bl ood Cell Count 5.0 thousand/uL 3.8-10.8 thousand/uL [facility]: [address] [facility] Blood venous Normal Red Blood Cell Count 4.5 4 million/uL 3.80-5.10 million/uL [facility] [address] [facility] Blood venous Normal Hemoglobin 12.2 g/dL 11.7-15. 5 g/dL Final [facility]: [address] [facility] Blood venous Normal Hematocrit 37.2 % 35.0-45.0 % Final [facility]: [address] [facility] Blood venous Normal Mcv 81.9 fL 80.0-100.0 fL Fi nal [facility]: [address] [facility] Blood venous Low Mch 26.9 pg 27.0-33.0 pg Fin al [facility]: [address] [facility] Blood venous Normal Mchc 32.8 g/dL 32.0-36.0 g/dL [facility]: [address] [facility] Blood venous Normal Rdw 14.2 % 11.0-15.0 % [facility]: [address] [facility] Blood venous Normal Platelet Count 288 thous and/uL 140-400 thousand/uL [facility]: [address] [facility] Blood venous Normal Mpv 10.6 fL 7.5-12.5 fL Cinthya l [facility]: [address] [facility] Blood venous Normal Absolute Neutrophils 216 5 cells/uL 9472-4327 cells/uL [facility]: [address] [facility] Blood venous Normal Absolute Lymphocytes 205 0 cells/uL 850-3900 cells/uL [facility]: [address] [facility] Blood venous Normal Absolute Monocytes 545 c ells/uL 200-950 cells/uL [facility]: [address] [facility] Blood venous Normal Absolute Eosinophils 150 cells/uL 15-500 cells/uL [facility]: [address] [facility] Blood venous Normal Absolute Basophils 90 ce lls/uL 0-200 cells/uL [facility]: [address] [facility] Blood venous Normal Neutrophils 43.3 % 38-80 % [facility]: [address] [facility] Blood venous Normal Lymphocytes 41.0 % 15-49 % [facility]: [address] [facility] Blood venous Normal Monocytes 10.9 % 0-13 % [facility]: [address] [facility] Blood venous Normal Eosinophils 3.0 % 0-8 % Fin al [facility]: [address] [facility] Blood venous Normal Basophils 1.8 % 0-2 % [facility]: [address] [facility] Hepatitis C Virus Ab, Serum Blood venous Normal Hepatitis C Antibody non-reactive non-reactive [facility]: [address] [facility] Blood venous Normal Index 0.01 <1.00 Final est [facility]: [address] [facility] Vitamin B12 + Folate, Serum or Blood Blood venous Normal Vitamin B12 601 pg/mL 200-1100 pg/mL Final [facility] [place]: [address] [place] Blood venous Normal Folate, Serum >24.0 NG/mL Final [facility]: [address] [place] Vitamin D, 25-Hydroxy, Total, Serum Blood venous Normal Vitamin D,25- Oh,total,ia 36 NG/mL 30-100 NG/mL Final [facility]: [address] [place] HbA1C (Hemoglobin a1C), Blood Blood venous High Hemoglobin a1C 5.8 % of total HGB <5.7 % of total HGB Final [facility]: [address] [place] Past Encounters 12/17/2020 Gynecologic Examination; Screening for Malignant Neoplasm of Cervix; Human Papilloma Virus Infection Rima Segundo MD: [address] [place] [phone], Ph. 12/14/2020 Kevin Faria MD: [address] [place] [phone], Ph. 12/06/2020 Body Mass Index 25-29 - Overweight; Screening for Malignant Neoplasm of Colon; Screening for Malignant Neoplasm of Breast; Tobacco Dependence in Remission; Pain in Right Foot; Adult Health Examination GEORGI Tipton: [address] [place] [phone], Ph. Social History Tobacco Smoking Status Former Smoker Vaccine List Vaccine Type COVID-19, mRNA, LNP-S, PF, 100 mcg/0.5 m L dose 07/20/2020 08/17/2020 HPV9 .5 mL Plan of Care Patient Instructions Physical exam done today. Please continu e medications as prescribed. Please continue healthy diet and physical activities. Please try to limit sugars and carbohydrates in your diet. Please try to maintain adequate intake of water daily. Reminders Provider Appointments None recorded. Lab None recorded. Referral None recorded. Procedures None recorded. Surgeries None recorded. Imaging None recorded. Vitals 12/17/2020 11:00AM PAP SMEAR Height Weight BMI Blood Pressure 66 in 174 lbs 8 oz 28.2 kg/m2 132/72 mm[Hg] 12/14/2020 08:20AM NURSE LAB COLLECTION Height 66 in 12/06/2020 01:00PM NEW PATIENT (13yrs - OLDER) Height Weight BMI Blood Pressure 66 in 176 lbs 3.2 oz 28.4 kg/m2 134/71 mm[Hg ]
--- OUTSIDE RECORDS SUMMARY | 2021-03-05 11:07 | CCD ---
Author Organization Unknown Address [address] [place] [address] Phone [phone] Care Team Providers Care Dress Finisher Name Role Phone Agnieszka Darden Unavailable Unavailable [...] [facility] [address] [place] [address] (Work Place) 12/06/2020 LDCT, Chest, for Lung Cancer Screening [facility] Oncology/Radiology [address] [place] [address] (Work Place) Notes: has had 2 colposcopy Results Lab Results None recorded. Past Encounters 12/17/2020 Gynecologic Examination; Screening for Malignant Neoplasm of Cervix; Human Papilloma Virus Infection Rima Segundo MD: [address] [place] [phone], Ph. 12/14/2020 Kevin Faria MD: [address] [place] [phone], Ph. 12/06/2020 Body Mass Index 25-29 - Overweight; Screening for Malignant Neoplasm of Colon; Screening for Malignant Neoplasm of Breast; Tobacco Dependence in Remission; Pain in Right Foot; Adult Health Examination MARIOLA TiptonP-BC: [address] [place] [address], Ph. Social History Tobacco Smoking Status Former [...]
--- OUTSIDE RECORDS SUMMARY | 2021-03-05 11:07 | CCD ---
Author Organization Unknown Address [address] [place] [address] Phone [phone] Care Team Providers Care Director Epidemiology Name Role Phone Agnieszka Darden Unavailable Unavailable Allergies Code Code System Name Reaction Severity Status Onset NKDA Medications Name Status Start Date Stop Date clindamycin 2 % vaginal cream Completed escitalopram 20 mg tablet Active Not av ailable fluconazole 150 mg tablet Completed 2020 metronidazole 0.75 % vaginal gel Completed 12/06/2020 metronidazole 500 mg tablet Completed 09/2020 Problems None recorded. Procedures Date Name Performed by 12/06/2020 MAMMO, Screening, Digital, Bilateral [facility] [address] [place], [place] [id number] (Work Place) 12/06/2020 LDCT, Chest, for Lung Cancer Screening S [facility] Oncology/Radiology [address] [place], [place] [id number] (Work Place) Results Lab Results None recorded. Past Encounters 12/06/2020 Body Mass Index 25-29 - Overweight; Screening for Malignant Neoplasm of Colon; Screening for Malignant Neoplasm of Breast; Tobacco Dependence in Remission; Pain in Right Foot; Adult Health Examination MARIOLA TiptonP-BC: [address] [place] [phone], Ph. Social History Tobacco Smoking Status Former Smoker Vaccine List Vaccine Type COVID-19, mRNA, LNP-S, PF, 100 mcg/0.5 m L dose 07/20/2020 08/17/2020 Plan of Care Patient Instructions Physical exam done today. Please continu e medications as prescribed. Please continue healthy diet and physical activities. Please try to limit sugars and carbohydrates in your diet. Please try to maintain adequate intake of water daily. Reminders Provider Appointments None recorded. Lab None recorded. Referral None recorded. Procedures None recorded. Surgeries None recorded. Imaging None recorded. Vitals Height Weight BMI Blood Pressure 66 in 176 lbs 3.2 oz 28.4 kg/m2 134/71 mm[Hg ]
[2021-03-05] MEDS ORDERED: LIDOCAINE 2% 100MG/5ML SDV (FOR ANES.) As Ordered ONE (11:52)
[2021-03-05] MEDS ORDERED: propofoL 200 MG/20 ML VIAL As Ordered ONE (11:52)
--- NOTE | 2021-03-05 12:59 | ROOR ---
Patient Name: Anamika Fonseca Procedure Date: 03/05/2021 12:21 PM Date of : 1960 Age: 60 Room: [facility] Gender: Female Note Status: Finalized Procedure: Colonoscopy Indications: Screening in patient at increased risk: Family history of 1st-degree relative with colorectal cancer, High risk colon cancer surveillance: Personal history of colonic polyps Providers: Scott Campa MD Referring MD: Agnieszka Darden NP Requesting Provider: Medicines: Monitored Anesthesia Care Complications: No immediate complications. Procedure: Pre-Anesthesia Assessment: - Prior to the procedure, a History and Physical was performed, and patient medications and allergies were reviewed. The patient is competent. The risks and benefits of the procedure and the sedation options and risks were discussed with the patient. All questions were answered and informed consent was obtained. Patient identification and proposed procedure were verified by the physician, the nurse and the anesthesiologist in the procedure room. Mental Status Examination: alert and oriented. Airway Examination: normal oropharyngeal airway and neck mobility. Respiratory Examination: clear to auscultation. CV Examination: normal. Prophylactic Antibiotics: The patient does not require prophylactic antibiotics. Prior Anticoagulants: The patient has taken no previous anticoagulant or antiplatelet agents. ASA Grade Assessment: II - A patient with mild systemic disease. After reviewing the risks and benefits, the patient was deemed in satisfactory condition to undergo the procedure. The anesthesia plan was to use monitored anesthesia care (MAC). Immediately prior to administration of medications, the patient was re-assessed for adequacy to receive sedatives. The heart rate, respiratory rate, oxygen saturations, blood pressure, adequacy of pulmonary ventilation, and response to care were monitored throughout the procedure. The physical status of the patient was re-assessed after the procedure. The Colonoscope was introduced through the anus and advanced to the terminal ileum, with identification of the appendiceal orifice and IC valve. The colonoscopy was performed without difficulty. The patient tolerated the procedure well. The quality of the bowel preparation was good. The terminal ileum, ileocecal valve, appendiceal orifice, and rectum were photographed. Scope insertion time was 2 minutes. Scope withdrawal time was 9 minutes. The total duration of the procedure was 11 minutes. Findings: The perianal and digital rectal examinations were normal. The terminal ileum appeared normal. A 3 mm polyp was found in the transverse colon. The polyp was sessile. The polyp was removed with a jumbo cold forceps. Resection and retrieval were complete. Verification of patient identification for the specimen was done by the physician and nurse using the patient's name, date and medical record number. Estimated blood loss was minimal. Localized moderate mucosal changes characterized by congestion (edema), erosions, friability and granularity were found in the ascending colon. Biopsies were taken with a cold forceps for histology. Multiple small-mouthed diverticula were found from sigmoid to descending colon. There was no evidence of diverticular bleeding. Non-bleeding external and internal hemorrhoids were found during retroflexion. The hemorrhoids were medium-sized. Impression: - The examined portion of the ileum was normal. - One 3 mm polyp in the transverse colon, removed with a jumbo cold forceps. Resected and retrieved. - Localized moderate mucosal changes were found in the ascending colon secondary to colitis. Biopsied. - Mild diverticulosis from sigmoid to descending colon. There was no evidence of diverticular bleeding. - Non-bleeding external and internal hemorrhoids. Recommendation: - Patient has a contact number available for emergencies. The signs and symptoms of potential delayed complications were discussed with the patient. Return to normal activities tomorrow. Written discharge instructions were provided to the patient. - High fiber diet. - Continue present medications. - Await pathology results. - Repeat colonoscopy in 5 years for surveillance based on pathology results. - Telephone GI clinic for pathology results in 2 weeks. - Return to GI clinic if persistent symptoms or new symptoms. - Return to primary care physician. Procedure Code(s): --- Professional --- 50530, Colonoscopy, flexible; with biopsy, single or multiple Diagnosis Code(s): --- Professional --- Z80.0, Family history of malignant neoplasm of digestive organs Z86.010, Personal history of colonic polyps K64.8, Other hemorrhoids K63.5, Polyp of colon K52.9, Noninfective gastroenteritis and colitis, unspecified K57.30, Diverticulosis of large intestine without perforation or abscess without bleeding CPT copyright 2019 [employer]. All rights reserved. The codes documented in this report are preliminary and upon safety scientist review may be revised to meet current compliance requirements. Scott Campa MD Scott Campa MD 03/05/2021 12:59:09 PM Electronically signed by Scott Campa MD Number of Addenda: 0 Note Initiated On: 03/05/2021 12:21 PM Estimated Blood Loss: Estimated blood loss was minimal.
[2021-03-05 13:10] VITALS: BP 110/67
== END 2021-03-05 13:21 | disposition home or self-care (01) ==
LOC: M OPP 11:02
PROVIDERS: ATTEND Internal Medicine Gastroenterology
DX: Z12.11 Encounter for screening for malignant neoplasm of colon (principal); Z86.010 Personal history of colon polyps; Z80.0 Family history of malignant neoplasm of digestive organs; D12.6 Benign neoplasm of colon, unspecified; K57.30 Diverticulosis of large intestine without perforation or abscess without bleeding; K64.8 Other hemorrhoids; K52.9 Noninfective gastroenteritis and colitis, unspecified; Z79.899 Other long term (current) drug therapy; Z98.84 Bariatric surgery status; Z87.891 Personal history of nicotine dependence; Z80.3 Family history of malignant neoplasm of breast

== ENCOUNTER → 2021-10-29 | Outpatient (CLI) | payer BC ==
[~2021-10-29] MED LIST changes: -NS 1,000 ML IV ONE
== END ==
LOC: M RAD 13:24
PROVIDERS: ATTEND Nurse Practitioner Family
DX: Z12.2 Encounter for screening for malignant neoplasm of respiratory organs (principal); Z87.891 Personal history of nicotine dependence

== ENCOUNTER → 2022-01-17 | Outpatient (REF) | payer BC ==
[2022-01-17 16:55] LABS: BASO # 0.1 10^3/uL (0.0-0.2); BASO % 1.5 % (0.0-1.0); EOS # 0.1 10^3/uL (0.0-0.5); HEMATOCRIT 42.5 % (36.0-47.0); HEMOGLOBIN 12.7 g/dl (12.0-15.5); LYMPH # 1.6 10^3/uL (1.5-5.0); LYMPH % 29.4 % (24.0-44.0); MEAN CORPUSCULAR HEMOGLOBIN 26.5 pg (27.0-33.0); MEAN CORPUSCULAR HGB CONC 29.9 g/dl (32.0-36.5); MEAN CORPUSCULAR VOLUME 88.5 fl (80.0-96.0); MONO # 0.6 10^3/uL (0.0-0.8); MONO % 10.6 % (2.0-8.0); NEUTROPHILS % 56.3 % (36.0-66.0); PLATELET COUNT, AUTOMATED 327 10^3/uL (150-450); WHITE BLOOD COUNT 5.4 10^3/uL (4.0-10.0)
[2022-01-17 17:01] LABS: HEMOGLOBIN A1c 6.1 %
[2022-01-17 17:47] LABS: ERYTHROCYTE SEDIMENTATION RATE 11 mm/hr (0-30)
[2022-01-17 18:08] LABS: BLOOD UREA NITROGEN 18 MG/DL (7-18); CALCIUM LEVEL 9.5 MG/DL (8.5-10.1); CARBON DIOXIDE LEVEL 29 MEQ/L (21-32); CHLORIDE LEVEL 104 MEQ/L (98-107); CREATININE FOR GFR 0.75 MG/DL (0.55-1.30); GLOMERULAR FILTRATION RATE > 60.0 (>51); GLUCOSE, FASTING 95 MG/DL (70-100); POTASSIUM SERUM 6.4 MEQ/L (3.5-5.1); SODIUM LEVEL 136 MEQ/L (136-145)
[2022-01-17 18:09] LABS: ALT/SGPT 31 U/L (12-78); BILIRUBIN,TOTAL 0.2 MG/DL (0.2-1.0); CHOLESTEROL LEVEL 256 MG/DL (<200); CHOLESTEROL RISK RATIO 3.657 (<5); HDL CHOLESTEROL 70 MG/DL (>40); LDL CHOLESTEROL 156 MG/DL (<100); NON-HDL-C 186 MG/DL; TOTAL PROTEIN 7.7 GM/DL (6.4-8.2); TRIGLYCERIDES LEVEL 149 MG/DL (<150)
== END ==
LOC: M LAB REF 16:16
PROVIDERS: ATTEND Nurse Practitioner Family
DX: E66.3 Overweight (principal); Z68.29 Body mass index [BMI] 29.0-29.9, adult

== ENCOUNTER 2022-01-18 09:07 | Emergency (ER) | payer BC ==
[~2022-01-18] VITALS: Ht 167.6 cm; Wt 85.5 kg
[2022-01-18 10:23] LABS: BLOOD UREA NITROGEN 15 MG/DL (7-18); CALCIUM LEVEL 9.6 MG/DL (8.5-10.1); CARBON DIOXIDE LEVEL 30 MEQ/L (21-32); CHLORIDE LEVEL 106 MEQ/L (98-107); CREATININE FOR GFR 0.83 MG/DL (0.55-1.30); GLOMERULAR FILTRATION RATE > 60.0 (>51); GLUCOSE, FASTING 100 MG/DL (70-100); POTASSIUM SERUM 4.5 MEQ/L (3.5-5.1); SODIUM LEVEL 137 MEQ/L (136-145)
[2022-01-18 11:04] VITALS: BP 128/79
== END 2022-01-18 11:08 | disposition home or self-care (01) ==
LOC: M ED 09:07
DX: R79.9 Abnormal finding of blood chemistry, unspecified (principal); F32.A Depression, unspecified; F41.9 Anxiety disorder, unspecified; Z98.84 Bariatric surgery status

== ENCOUNTER → 2022-03-04 | Outpatient (CLI) | payer BC | LOC: M WHC 14:20 | PROVIDERS: ATTEND Nurse Practitioner Family | DX: Z12.31 Encounter for screening mammogram for malignant neoplasm of breast (principal) ==

== ENCOUNTER → 2022-03-06 | Outpatient (REF) | payer BC | LOC: M LAB REF 17:27 | PROVIDERS: ATTEND Nurse Practitioner Family | DX: Z12.4 Encounter for screening for malignant neoplasm of cervix (principal) | CPT/HCPCS: 87624; G0123 ==

== ENCOUNTER 2022-06-16 11:12 | Emergency (ER) | payer BC ==
[~2022-06-16] VITALS: Ht 167.6 cm; Wt 88.6 kg
[2022-06-16 11:49] LABS: BASO # 0.1 10^3/uL (0.0-0.2); BASO % 1.7 % (0.0-1.0); EOS # 0.1 10^3/uL (0.0-0.5); HEMATOCRIT 40.2 % (36.0-47.0); HEMOGLOBIN 12.3 g/dl (12.0-15.5); LYMPH # 1.6 10^3/uL (1.5-5.0); LYMPH % 34.3 % (24.0-44.0); MEAN CORPUSCULAR HEMOGLOBIN 25.8 pg (27.0-33.0); MEAN CORPUSCULAR HGB CONC 30.6 g/dl (32.0-36.5); MEAN CORPUSCULAR VOLUME 84.3 fl (80.0-96.0); MONO # 0.5 10^3/uL (0.0-0.8); MONO % 10.7 % (2.0-8.0); NEUTROPHILS # 2.3 10^3/uL (1.5-8.5); NEUTROPHILS % 50.1 % (36.0-66.0); PLATELET COUNT, AUTOMATED 334 10^3/uL (150-450); RED BLOOD COUNT 4.77 10^6/uL (4.00-5.40); WHITE BLOOD COUNT 4.6 10^3/uL (4.0-10.0)
[2022-06-16 12:11] LABS: CK-MB VALUE MASS < 1.0 NG/ML (<3.6)
[2022-06-16 12:13] LABS: BLOOD UREA NITROGEN 16 MG/DL (9-23); CALCIUM LEVEL 8.9 MG/DL (8.5-10.1); CARBON DIOXIDE LEVEL 28 MMOL/L (20-31); CHLORIDE LEVEL 108 MMOL/L (98-107); CPK CREATINE PHOSPHOKINASE 37 U/L (34-145); CREATININE FOR GFR 0.67 MG/DL (0.55-1.30); GLOMERULAR FILTRATION RATE > 60.0 (>51); GLUCOSE, FASTING 101 MG/DL (60-100); POTASSIUM SERUM 4.3 MMOL/L (3.5-5.1); SODIUM LEVEL 139 MMOL/L (136-145)
[2022-06-16 12:16] LABS: FREE T4 0.94 NG/DL (0.89-1.76); THYROID STIMULATING HORMONE 1.602 uIU/ML (0.55-4.78)
[2022-06-16 15:35] VITALS: BP 158/92
== END 2022-06-16 19:32 | disposition home or self-care (01) ==
LOC: M ED 11:12
DX: R07.89 Other chest pain (principal); J45.909 Unspecified asthma, uncomplicated; F41.9 Anxiety disorder, unspecified; Z98.84 Bariatric surgery status

== ENCOUNTER → 2022-08-12 | Outpatient (REF) | payer BC ==
[2022-08-12 17:37] LABS: THYROID STIMULATING HORMONE 1.164 uIU/ML (0.55-4.78)
[2022-08-12 17:43] LABS: TOTAL 25(OH) VITAMIN D 32.1 NG/ML (20.0-100.0)
[2022-08-12 17:44] LABS: ALBUMIN 3.9 G/DL (3.2-5.2); ALKALINE PHOSPHATASE 96 U/L (46-116); ALT/SGPT 28 U/L (7.0-40); AST/SGOT 17 U/L (<34); BILIRUBIN,TOTAL 0.4 MG/DL (0.3-1.2); BLOOD UREA NITROGEN 15 MG/DL (9-23); CALCIUM LEVEL 9.3 MG/DL (8.5-10.1); CARBON DIOXIDE LEVEL 30 MMOL/L (20-31); CHLORIDE LEVEL 105 MMOL/L (98-107); CHOLESTEROL LEVEL 218 MG/DL (<200); CHOLESTEROL RISK RATIO 3.15 (<5); CREATININE FOR GFR 0.71 MG/DL (0.55-1.30); GLOMERULAR FILTRATION RATE > 60.0 (>51); GLUCOSE, FASTING 96 MG/DL (60-100); HDL CHOLESTEROL 69.2 MG/DL (>40); LDL CHOLESTEROL 121.2 MG/DL (<100); NON-HDL-C 148.8 MG/DL; POTASSIUM SERUM 5.4 MMOL/L (3.5-5.1); SODIUM LEVEL 141 MMOL/L (136-145); TOTAL PROTEIN 6.9 G/DL (5.7-8.2); TRIGLYCERIDES LEVEL 138 MG/DL (<150)
== END ==
LOC: M LAB REF 16:15
PROVIDERS: ATTEND Nurse Practitioner Family
DX: Z13.228 Encounter for screening for other metabolic disorders (principal)

== ENCOUNTER → 2022-11-17 | Outpatient (REF) | payer BC ==
[2022-11-17 12:57] LABS: CHOLESTEROL RISK RATIO 2.87 (<5); LDL CHOLESTEROL 94.6 MG/DL (<100)
[2022-11-17 13:24] LABS: HEMOGLOBIN A1c 5.8 % (4.0-6.0)
== END ==
LOC: M LAB REF 11:38
PROVIDERS: ATTEND Nurse Practitioner Family
DX: E66.9 Obesity, unspecified (principal); Z13.228 Encounter for screening for other metabolic disorders

== ENCOUNTER 2022-12-13 03:51 | Inpatient (IN) | payer BC ==
[2022-12-13] MEDS ORDERED: ONDANSETRON 4MG 2ML VIAL IV ONE ×2 (05:30→09:05)
[2022-12-13] MEDS ORDERED: ONDANSETRON 4MG 2ML VIAL As Ordered ONE (05:35)
[2022-12-13] MEDS: MORPHINE 4 MG/ML 1ML VIAL IV PRN ×2 (05:37→06:10)
[2022-12-13] MEDS ORDERED: NS 1,000 ML IV SCH (05:50)
[2022-12-13 06:10] LABS: BASO # 0.1 10^3/uL (0.0-0.2); BASO % 0.4 % (0.0-1.0); EOS % 0.2 % (0.0-3.0); HEMATOCRIT 43.7 % (36.0-47.0); HEMOGLOBIN 13.7 g/dl (12.0-15.5); LYMPH # 1.1 10^3/uL (1.5-5.0); LYMPH % 7.9 % (24.0-44.0); MEAN CORPUSCULAR HEMOGLOBIN 27.3 pg (27.0-33.0); MEAN CORPUSCULAR HGB CONC 31.4 g/dl (32.0-36.5); MEAN CORPUSCULAR VOLUME 87.2 fl (80.0-96.0); MONO # 0.9 10^3/uL (0.0-0.8); MONO % 6.4 % (2.0-8.0); NEUTROPHILS % 84.7 % (36.0-66.0); PLATELET COUNT, AUTOMATED 292 10^3/uL (150-450); RED BLOOD COUNT 5.01 10^6/uL (4.00-5.40); WHITE BLOOD COUNT 14.1 10^3/uL (4.0-10.0)
[2022-12-13 06:21] LABS: INR 1.01
[2022-12-13 06:22] LABS: PARTIAL THROMBOPLASTIN TIME 22.9 SECONDS (24.8-34.2)
[2022-12-13 06:32] LABS: BLOOD UREA NITROGEN 14 MG/DL (9-23); CALCIUM LEVEL 9.3 MG/DL (8.3-10.6); CARBON DIOXIDE LEVEL 25 MMOL/L (20-31); CHLORIDE LEVEL 106 MMOL/L (98-107); CREATININE FOR GFR 0.75 MG/DL (0.55-1.30); GLOMERULAR FILTRATION RATE > 60.0 (>45); GLUCOSE, FASTING 137 MG/DL (74-106); POTASSIUM SERUM 4.3 MMOL/L (3.5-5.1); SODIUM LEVEL 141 MMOL/L (136-145)
[2022-12-13 06:38] LABS: ETHYL ALCOHOL (ETHANOL) 0.031 % (0.000-0.010)
[2022-12-13] MEDS ORDERED: MORPHINE 4 MG/ML 1ML VIAL IV PRN (09:05)
[2022-12-13] MEDS ORDERED: MAALOX 30 ML SUSP *UDC PO PRN (10:25)
[2022-12-13] MEDS ORDERED: MORPHINE 2 MG/ML 1ML VIAL IV PRN (10:25)
[2022-12-13] MEDS ORDERED: ONDANSETRON 4MG 2ML VIAL IV PRN (10:25)
[2022-12-13] MEDS ORDERED: MED REC IN PROGRESS XX SCH (10:35)
[2022-12-13] MEDS: NS 1,000 ML IV SCH ×2 (10:43→22:22)
[2022-12-13] MEDS ORDERED: SEMA0.257 SQ (10:45)
[2022-12-13] MEDS ORDERED: HOME MED LIST COMPLETE! XX SCH (10:55)
[2022-12-13] MEDS ORDERED: DOCUSATE SODIUM 100MG CAPSULE PO ONE (11:40)
[2022-12-13] MEDS: ACETAMINOPHEN TAB 650MG DOSE (2X325MG) PO PRN (11:59)
[2022-12-13] MEDS ORDERED: HYDROMORPHONE HCL 0.5 MG/ 0.5 ML SYRINGE IV PRN (13:00)
[2022-12-13] MEDS ORDERED: NALOXONE INJ 0.4MG/1ML VIAL IV PRN (13:00)
[2022-12-13 14:26] VITALS: BP 135/82; TEMP 98.6; O2SAT 99
[2022-12-13] MEDS: HYDROMORPHONE HCL 0.5 MG/ 0.5 ML SYRINGE IV PRN ×4 (14:31→23:39)
[2022-12-13] MEDS: DOCUSATE SODIUM 100MG CAPSULE PO SCH (19:51)
[2022-12-13 21:20] VITALS: BP 121/74; TEMP 98.1; O2SAT 98
[2022-12-14] MEDS: ACETAMINOPHEN TAB 650MG DOSE (2X325MG) PO PRN (01:00)
[2022-12-14] MEDS: HYDROMORPHONE HCL 0.5 MG/ 0.5 ML SYRINGE IV PRN ×4 (03:40→17:57)
[2022-12-14 06:00] VITALS: BP 123/73; TEMP 97.7; O2SAT 95
[2022-12-14] MEDS: HEPARIN SOD (PORCINE) 5000UNITS/ML 1ML VIAL/SYRINGE SQ SCH ×4 (06:00→22:25)
[2022-12-14 07:34] LABS: BASO # 0.1 10^3/uL (0.0-0.2); BASO % 1.1 % (0.0-1.0); EOS # 0.2 10^3/uL (0.0-0.5); EOS % 3.4 % (0.0-3.0); HEMATOCRIT 36.7 % (36.0-47.0); LYMPH # 2.4 10^3/uL (1.5-5.0); LYMPH % 38.4 % (24.0-44.0); MEAN CORPUSCULAR HEMOGLOBIN 27.6 pg (27.0-33.0); MEAN CORPUSCULAR HGB CONC 30.8 g/dl (32.0-36.5); MEAN CORPUSCULAR VOLUME 89.7 fl (80.0-96.0); MONO # 0.8 10^3/uL (0.0-0.8); MONO % 12.5 % (2.0-8.0); NEUTROPHILS # 2.8 10^3/uL (1.5-8.5); NEUTROPHILS % 44.4 % (36.0-66.0); PLATELET COUNT, AUTOMATED 200 10^3/uL (150-450); RED BLOOD COUNT 4.09 10^6/uL (4.00-5.40); WHITE BLOOD COUNT 6.2 10^3/uL (4.0-10.0)
[2022-12-14 07:36] LABS: HEMOGLOBIN 11.3 g/dl (12.0-15.5)
[2022-12-14 07:45] LABS: BLOOD UREA NITROGEN 8 MG/DL (9-23); CALCIUM LEVEL 8.1 MG/DL (8.3-10.6); CARBON DIOXIDE LEVEL 27 MMOL/L (20-31); CHLORIDE LEVEL 106 MMOL/L (98-107); CREATININE FOR GFR 0.63 MG/DL (0.55-1.30); GLOMERULAR FILTRATION RATE > 60.0 (>45); GLUCOSE, FASTING 93 MG/DL (74-106); POTASSIUM SERUM 3.8 MMOL/L (3.5-5.1); SODIUM LEVEL 140 MMOL/L (136-145)
[2022-12-14] MEDS: PERCOCET 5MG/325MG TAB PO PRN ×3 (07:51→20:57)
[2022-12-14] MEDS: DOCUSATE SODIUM 100MG CAPSULE PO SCH (07:51)
[2022-12-14] MEDS: MULTIVITAMINS/MINERALS THERAP 1 TAB PO SCH (13:08)
[2022-12-14] MEDS: ESCITALOPRAM OXALATE 10 MG TAB (LEXAPRO) PO SCH (13:16)
[2022-12-14] MEDS: MOM 30ML SUSPENSION UDC PO PRN (14:19)
[2022-12-14 17:26] VITALS: BP 115/71; TEMP 97.7; O2SAT 94
[2022-12-14] MEDS: SENOKOT S TAB PO SCH (20:55)
[2022-12-14] MEDS: RAMELTEON 8 MG TAB (ROZEREM) PO SCH (20:55)
[2022-12-14] MEDS: MIRALAX *UNIT DOSE* 17GM PACKET PO SCH (20:57)
[2022-12-14 22:00] VITALS: BP 115/70; TEMP 99; O2SAT 95
[2022-12-15] MEDS: HYDROMORPHONE HCL 0.5 MG/ 0.5 ML SYRINGE IV PRN ×4 (01:35→13:29)
[2022-12-15] MEDS: PERCOCET 5MG/325MG TAB PO PRN (03:28)
[2022-12-15 06:00] VITALS: BP_SYST 115; BP_SYST 99; BP_DIAS 70; BP_DIAS 72; TEMP 97.6; TEMP 99; O2SAT 95; O2SAT 96
[2022-12-15 06:43] LABS: BASO # 0.1 10^3/uL (0.0-0.2); BASO % 0.8 % (0.0-1.0); EOS # 0.2 10^3/uL (0.0-0.5); EOS % 3.9 % (0.0-3.0); HEMATOCRIT 35.3 % (36.0-47.0); HEMOGLOBIN 10.9 g/dl (12.0-15.5); LYMPH # 1.6 10^3/uL (1.5-5.0); LYMPH % 26.6 % (24.0-44.0); MEAN CORPUSCULAR HEMOGLOBIN 27.4 pg (27.0-33.0); MEAN CORPUSCULAR HGB CONC 30.9 g/dl (32.0-36.5); MEAN CORPUSCULAR VOLUME 88.7 fl (80.0-96.0); MONO # 0.9 10^3/uL (0.0-0.8); MONO % 13.9 % (2.0-8.0); NEUTROPHILS # 3.3 10^3/uL (1.5-8.5); NEUTROPHILS % 54.6 % (36.0-66.0); PLATELET COUNT, AUTOMATED 201 10^3/uL (150-450); RED BLOOD COUNT 3.98 10^6/uL (4.00-5.40); WHITE BLOOD COUNT 6.1 10^3/uL (4.0-10.0)
[2022-12-15 06:56] LABS: BLOOD UREA NITROGEN 7 MG/DL (9-23); CALCIUM LEVEL 8.5 MG/DL (8.3-10.6); CARBON DIOXIDE LEVEL 31 MMOL/L (20-31); CHLORIDE LEVEL 105 MMOL/L (98-107); CREATININE FOR GFR 0.63 MG/DL (0.55-1.30); GLOMERULAR FILTRATION RATE > 60.0 (>45); GLUCOSE, FASTING 92 MG/DL (74-106); MAGNESIUM LEVEL 2.2 MG/DL (1.8-2.4); POTASSIUM SERUM 3.9 MMOL/L (3.5-5.1); SODIUM LEVEL 141 MMOL/L (136-145)
[2022-12-15] MEDS: MULTIVITAMINS/MINERALS THERAP 1 TAB PO SCH (09:00)
[2022-12-15] MEDS: ESCITALOPRAM OXALATE 10 MG TAB (LEXAPRO) PO SCH (09:00)
[2022-12-15] MEDS: MIRALAX *UNIT DOSE* 17GM PACKET PO SCH ×2 (09:00→21:00)
[2022-12-15] MEDS: SENOKOT S TAB PO SCH ×2 (10:32→22:45)
[2022-12-15] MEDS: HEPARIN SOD (PORCINE) 5000UNITS/ML 1ML VIAL/SYRINGE SQ SCH ×2 (12:37→22:00)
[2022-12-15 14:00] VITALS: BP 99/68; TEMP 98.2; O2SAT 91
[2022-12-15] MEDS ORDERED: ROCURONIUM BROMIDE 50MG/5ML VIAL As Ordered ONE ×2 (16:36→19:13)
[2022-12-15] MEDS ORDERED: LIDOCAINE 2% 100MG/5ML SDV (FOR ANES.) As Ordered ONE (16:36)
[2022-12-15] MEDS ORDERED: propofoL 200 MG/20 ML VIAL As Ordered ONE (16:36)
[2022-12-15] MEDS ORDERED: ONDANSETRON 4MG 2ML VIAL As Ordered ONE (16:36)
[2022-12-15] MEDS ORDERED: SUGAMMADEX SODIUM 500 MG/5 ML VIAL (BRIDION) As Ordered ONE (16:36)
[2022-12-15] MEDS ORDERED: fentaNYL 250 MCG/5 ML INJECTION As Ordered ONE (16:40)
[2022-12-15] MEDS ORDERED: MIDAZOLAM INJ 2MG/2ML VIAL As Ordered ONE (16:40)
[2022-12-15] MEDS ORDERED: TRANEXAMIC ACID 100 MG/ML 10ML VIAL As Ordered ONE ×2 (18:06→18:07)
[2022-12-15] MEDS ORDERED: ceFAZolin 2 GM/D5W 50 ML IV BAG As Ordered ONE (18:06)
[2022-12-15] MEDS ORDERED: ePHEDrine SULFATE 25 MG/5 ML(5MG/ML) SYRINGE As Ordered ONE (18:16)
[2022-12-15] MEDS ORDERED: LIDOCAINE W/EPINEPHRINE 1% 20ML VIAL As Ordered ONE (18:18)
[2022-12-15] MEDS ORDERED: ACETAMINOPHEN 1000MG 100ML IV BAG As Ordered ONE (18:20)
[2022-12-15] MEDS ORDERED: VANCOMYCIN 1000MG/20ML VIAL As Ordered ONE (20:31)
[2022-12-15] MEDS ORDERED: HYDROMORPHONE HCL 0.5 MG/ 0.5 ML SYRINGE IV PRN (20:55)
[2022-12-15] MEDS ORDERED: ONDANSETRON 4MG 2ML VIAL IV PRN (20:55)
[2022-12-15] MEDS ORDERED: fentaNYL 100 MCG/2 ML INJECTION IV PRN (20:55)
[2022-12-15] MEDS ORDERED: oxyCODONE 5MG TAB PO PRN (20:55)
[2022-12-15] MEDS ORDERED: LR 1,000 ML IV SCH (20:55)
[2022-12-15 22:00] VITALS: BP 119/73; TEMP 98.1; O2SAT 97
[2022-12-15 22:30] VITALS: BP 118/73; TEMP 97.7; O2SAT 97
[2022-12-15] MEDS: RAMELTEON 8 MG TAB (ROZEREM) PO SCH (22:45)
[2022-12-15] MEDS: MOM 30ML SUSPENSION UDC PO PRN (22:50)
[2022-12-15 23:30] VITALS: BP 114/66; TEMP 98.2; O2SAT 94
[2022-12-16] VITALS (11 sets, daily range): BP systolic 105–147; BP diastolic 63–92; TEMP 96.8–98.2; O2SAT 93–97
[2022-12-16] MEDS: HYDROMORPHONE HCL 0.5 MG/ 0.5 ML SYRINGE IV PRN ×4 (05:21→15:03)
[2022-12-16 06:44] LABS: BASO % 0.5 % (0.0-1.0); EOS % 0.1 % (0.0-3.0); HEMATOCRIT 31.4 % (36.0-47.0); HEMOGLOBIN 9.8 g/dl (12.0-15.5); LYMPH # 0.9 10^3/uL (1.5-5.0); LYMPH % 11.2 % (24.0-44.0); MEAN CORPUSCULAR HEMOGLOBIN 27.3 pg (27.0-33.0); MEAN CORPUSCULAR HGB CONC 31.2 g/dl (32.0-36.5); MEAN CORPUSCULAR VOLUME 87.5 fl (80.0-96.0); MONO # 0.8 10^3/uL (0.0-0.8); MONO % 9.9 % (2.0-8.0); NEUTROPHILS % 77.9 % (36.0-66.0); PLATELET COUNT, AUTOMATED 202 10^3/uL (150-450); RED BLOOD COUNT 3.59 10^6/uL (4.00-5.40); WHITE BLOOD COUNT 7.7 10^3/uL (4.0-10.0)
[2022-12-16 07:16] LABS: BLOOD UREA NITROGEN 7 MG/DL (9-23); CALCIUM LEVEL 8.6 MG/DL (8.3-10.6); CARBON DIOXIDE LEVEL 30 MMOL/L (20-31); CHLORIDE LEVEL 104 MMOL/L (98-107); CREATININE FOR GFR 0.58 MG/DL (0.55-1.30); GLOMERULAR FILTRATION RATE > 60.0 (>45); GLUCOSE, FASTING 107 MG/DL (74-106); POTASSIUM SERUM 4.2 MMOL/L (3.5-5.1); SODIUM LEVEL 140 MMOL/L (136-145)
[2022-12-16] MEDS: ASPIRIN 81MG ENTERIC TABLET PO SCH (08:48)
[2022-12-16] MEDS: MULTIVITAMINS/MINERALS THERAP 1 TAB PO SCH (08:48)
[2022-12-16] MEDS: MIRALAX *UNIT DOSE* 17GM PACKET PO SCH ×2 (08:49→22:01)
[2022-12-16] MEDS: SENOKOT S TAB PO SCH ×2 (08:49→22:01)
[2022-12-16] MEDS: ESCITALOPRAM OXALATE 10 MG TAB (LEXAPRO) PO SCH (08:49)
[2022-12-16] MEDS: PERCOCET 5MG/325MG TAB PO PRN (09:43)
[2022-12-16] MEDS ORDERED: fentaNYL 100 MCG/2 ML INJECTION IV PRN (18:15)
[2022-12-16] MEDS ORDERED: LIDOCAINE 1% SDV 5ML VIAL PN ONE (18:15)
[2022-12-16] MEDS ORDERED: dexAMETHasone 10MG/1ML VIAL PRES.FREE PN ONE (18:15)
[2022-12-16] MEDS ORDERED: EPINEPHrine INJ 1 MG/ML 1ML AMP PN ONE (18:15)
[2022-12-16] MEDS ORDERED: ROPIvacaine 0.5% 30ML VIAL PN ONE (18:15)
[2022-12-16] MEDS: MIDAZOLAM INJ 2MG/2ML VIAL IV PRN ×2 (18:44→18:49)
[2022-12-16] MEDS ORDERED: MIDAZOLAM INJ 2MG/2ML VIAL As Ordered ONE (18:51)
[2022-12-16] MEDS ORDERED: MIDAZOLAM INJ 2MG/2ML VIAL IV STA (18:54)
[2022-12-16] MEDS: RAMELTEON 8 MG TAB (ROZEREM) PO SCH (21:00)
[2022-12-17] MEDS: PERCOCET 5MG/325MG TAB PO PRN ×4 (00:12→19:23)
[2022-12-17 04:00] VITALS: BP 123/85; TEMP 97.2; O2SAT 93
[2022-12-17 06:37] LABS: BASO % 0.2 % (0.0-1.0); HEMATOCRIT 37.7 % (36.0-47.0); HEMOGLOBIN 11.7 g/dl (12.0-15.5); LYMPH # 0.6 10^3/uL (1.5-5.0); LYMPH % 6.7 % (24.0-44.0); MEAN CORPUSCULAR HEMOGLOBIN 27.5 pg (27.0-33.0); MEAN CORPUSCULAR VOLUME 88.7 fl (80.0-96.0); MONO # 0.3 10^3/uL (0.0-0.8); NEUTROPHILS # 7.6 10^3/uL (1.5-8.5); NEUTROPHILS % 88.7 % (36.0-66.0); PLATELET COUNT, AUTOMATED 262 10^3/uL (150-450); RED BLOOD COUNT 4.25 10^6/uL (4.00-5.40); WHITE BLOOD COUNT 8.5 10^3/uL (4.0-10.0)
[2022-12-17 07:01] LABS: BLOOD UREA NITROGEN 8 MG/DL (9-23); CALCIUM LEVEL 9.2 MG/DL (8.3-10.6); CARBON DIOXIDE LEVEL 28 MMOL/L (20-31); CHLORIDE LEVEL 102 MMOL/L (98-107); CREATININE FOR GFR 0.55 MG/DL (0.55-1.30); GLOMERULAR FILTRATION RATE > 60.0 (>45); GLUCOSE, FASTING 139 MG/DL (74-106); MAGNESIUM LEVEL 2.2 MG/DL (1.8-2.4); POTASSIUM SERUM 4.2 MMOL/L (3.5-5.1); SODIUM LEVEL 140 MMOL/L (136-145)
[2022-12-17] MEDS: ASPIRIN 81MG ENTERIC TABLET PO SCH (09:12)
[2022-12-17] MEDS: DOCUSATE SODIUM 100MG CAPSULE PO SCH ×2 (09:13→19:22)
[2022-12-17] MEDS: ACETAMINOPHEN TAB 650MG DOSE (2X325MG) PO PRN (09:13)
[2022-12-17] MEDS: ESCITALOPRAM OXALATE 10 MG TAB (LEXAPRO) PO SCH (09:13)
[2022-12-17] MEDS: ALPRAZolam 0.25 MG TAB PO PRN (09:13)
[2022-12-17] MEDS: MULTIVITAMINS/MINERALS THERAP 1 TAB PO SCH (09:13)
[2022-12-17] MEDS: SENOKOT S TAB PO SCH ×2 (09:14→19:22)
[2022-12-17 10:00] VITALS: BP 116/71; TEMP 97.3; O2SAT 95
[2022-12-17 14:00] VITALS: BP 98/61; TEMP 97.3; O2SAT 93
[2022-12-17 14:21] VITALS: BP 102/60
[2022-12-17 19:17] VITALS: BP 121/66; TEMP 97.7; O2SAT 97
[2022-12-17] MEDS: RAMELTEON 8 MG TAB (ROZEREM) PO SCH (19:22)
[2022-12-18] MEDS: PERCOCET 5MG/325MG TAB PO PRN ×4 (01:25→22:24)
[2022-12-18 05:41] VITALS: BP 114/65; TEMP 97.7; O2SAT 95
[2022-12-18] MEDS ORDERED: PERCOCET 5MG/325MG TAB PO ONE (05:45)
[2022-12-18] MEDS: MOM 30ML SUSPENSION UDC PO PRN (06:24)
[2022-12-18 06:34] LABS: BLOOD UREA NITROGEN 13 MG/DL (9-23); CALCIUM LEVEL 8.6 MG/DL (8.3-10.6); CARBON DIOXIDE LEVEL 32 MMOL/L (20-31); CHLORIDE LEVEL 102 MMOL/L (98-107); CREATININE FOR GFR 0.62 MG/DL (0.55-1.30); GLOMERULAR FILTRATION RATE > 60.0 (>45); GLUCOSE, FASTING 91 MG/DL (74-106); MAGNESIUM LEVEL 2.2 MG/DL (1.8-2.4); POTASSIUM SERUM 4.1 MMOL/L (3.5-5.1); SODIUM LEVEL 140 MMOL/L (136-145)
[2022-12-18 07:16] LABS: BASO % 0.6 % (0.0-1.0); EOS # 0.1 10^3/uL (0.0-0.5); EOS % 2.2 % (0.0-3.0); HEMATOCRIT 30.8 % (36.0-47.0); LYMPH # 2.2 10^3/uL (1.5-5.0); LYMPH % 35.2 % (24.0-44.0); MEAN CORPUSCULAR HEMOGLOBIN 27.6 pg (27.0-33.0); MEAN CORPUSCULAR HGB CONC 31.2 g/dl (32.0-36.5); MEAN CORPUSCULAR VOLUME 88.5 fl (80.0-96.0); MONO # 0.6 10^3/uL (0.0-0.8); NEUTROPHILS # 3.3 10^3/uL (1.5-8.5); NEUTROPHILS % 52.5 % (36.0-66.0); PLATELET COUNT, AUTOMATED 228 10^3/uL (150-450); RED BLOOD COUNT 3.48 10^6/uL (4.00-5.40); WHITE BLOOD COUNT 6.3 10^3/uL (4.0-10.0)
[2022-12-18 07:23] LABS: HEMOGLOBIN 9.6 g/dl (12.0-15.5)
[2022-12-18] MEDS: DOCUSATE SODIUM 100MG CAPSULE PO SCH ×2 (08:14→21:39)
[2022-12-18] MEDS: ASPIRIN 81MG ENTERIC TABLET PO SCH (08:14)
[2022-12-18] MEDS: ESCITALOPRAM OXALATE 10 MG TAB (LEXAPRO) PO SCH (08:15)
[2022-12-18] MEDS: MULTIVITAMINS/MINERALS THERAP 1 TAB PO SCH (08:15)
[2022-12-18] MEDS: SENOKOT S TAB PO SCH ×2 (08:15→21:39)
[2022-12-18] MEDS ORDERED: LACTULOSE 20GM/30ML SYRUP UDC PO ONE (09:00)
[2022-12-18] MEDS ORDERED: FLEET ENEMA PR PRN (13:55)
[2022-12-18] MEDS ORDERED: BISACODYL 10MG SUPP PR ONE (13:55)
[2022-12-18 14:00] VITALS: BP 127/84; TEMP 98.1; O2SAT 100
[2022-12-18] MEDS: ALPRAZolam 0.25 MG TAB PO PRN (16:28)
[2022-12-18 19:39] VITALS: BP 116/59; TEMP 98.1; O2SAT 96
[2022-12-18] MEDS: RAMELTEON 8 MG TAB (ROZEREM) PO SCH (21:39)
[2022-12-19] VITALS (8 sets, daily range): BP systolic 101–126; BP diastolic 52–82; TEMP 97.2–98.1; O2SAT 93–96
[2022-12-19] MEDS: PERCOCET 5MG/325MG TAB PO PRN ×2 (04:30→19:45)
[2022-12-19 06:14] LABS: BASO # 0.1 10^3/uL (0.0-0.2); EOS # 0.2 10^3/uL (0.0-0.5); EOS % 4.1 % (0.0-3.0); HEMATOCRIT 31.6 % (36.0-47.0); HEMOGLOBIN 9.9 g/dl (12.0-15.5); LYMPH # 1.9 10^3/uL (1.5-5.0); LYMPH % 39.1 % (24.0-44.0); MEAN CORPUSCULAR HEMOGLOBIN 27.7 pg (27.0-33.0); MEAN CORPUSCULAR HGB CONC 31.3 g/dl (32.0-36.5); MEAN CORPUSCULAR VOLUME 88.3 fl (80.0-96.0); MONO # 0.5 10^3/uL (0.0-0.8); MONO % 10.7 % (2.0-8.0); NEUTROPHILS # 2.2 10^3/uL (1.5-8.5); NEUTROPHILS % 44.9 % (36.0-66.0); PLATELET COUNT, AUTOMATED 250 10^3/uL (150-450); RED BLOOD COUNT 3.58 10^6/uL (4.00-5.40); WHITE BLOOD COUNT 4.9 10^3/uL (4.0-10.0)
[2022-12-19 06:31] LABS: BLOOD UREA NITROGEN 9 MG/DL (9-23); CALCIUM LEVEL 8.6 MG/DL (8.3-10.6); CARBON DIOXIDE LEVEL 30 MMOL/L (20-31); CHLORIDE LEVEL 103 MMOL/L (98-107); CREATININE FOR GFR 0.63 MG/DL (0.55-1.30); GLOMERULAR FILTRATION RATE > 60.0 (>45); GLUCOSE, FASTING 89 MG/DL (74-106); MAGNESIUM LEVEL 2.1 MG/DL (1.8-2.4); POTASSIUM SERUM 4.2 MMOL/L (3.5-5.1); SODIUM LEVEL 140 MMOL/L (136-145)
[2022-12-19] MEDS ORDERED: propofoL 200 MG/20 ML VIAL As Ordered ONE (08:15)
[2022-12-19] MEDS ORDERED: LIDOCAINE 2% 100MG/5ML SDV (FOR ANES.) As Ordered ONE (08:15)
[2022-12-19] MEDS ORDERED: fentaNYL 100 MCG/2 ML INJECTION As Ordered ONE (08:15)
[2022-12-19] MEDS ORDERED: MIDAZOLAM INJ 2MG/2ML VIAL As Ordered ONE ×2 (08:15→11:33)
[2022-12-19] MEDS: ASPIRIN 81MG ENTERIC TABLET PO SCH (09:00)
[2022-12-19] MEDS: DOCUSATE SODIUM 100MG CAPSULE PO SCH ×2 (09:00→19:44)
[2022-12-19] MEDS: SENOKOT S TAB PO SCH ×2 (09:00→19:44)
[2022-12-19] MEDS: ESCITALOPRAM OXALATE 10 MG TAB (LEXAPRO) PO SCH (09:00)
[2022-12-19] MEDS: MULTIVITAMINS/MINERALS THERAP 1 TAB PO SCH (09:00)
[2022-12-19] MEDS ORDERED: BACITRACIN OINTMENT 30GM TUBE As Ordered ONE (10:22)
[2022-12-19] MEDS ORDERED: ceFAZolin 2 GM/D5W 50 ML IV BAG As Ordered ONE (11:13)
[2022-12-19] MEDS ORDERED: ONDANSETRON 4MG 2ML VIAL As Ordered ONE (11:33)
[2022-12-19] MEDS ORDERED: KETOROLAC 60MG 2ML VIAL As Ordered ONE (11:34)
[2022-12-19] MEDS ORDERED: ACETAMINOPHEN 1000MG 100ML IV BAG As Ordered ONE (11:34)
[2022-12-19] MEDS: LR 1,000 ML IV SCH (11:55)
[2022-12-19] MEDS ORDERED: METOCLOPRAMIDE INJ 10MG/2ML VIAL IV PRN (11:55)
[2022-12-19] MEDS ORDERED: ONDANSETRON 4MG 2ML VIAL IV PRN (11:55)
[2022-12-19] MEDS ORDERED: ePHEDrine SULFATE 25 MG/5 ML(5MG/ML) SYRINGE As Ordered ONE (11:57)
[2022-12-19] MEDS ORDERED: PERC5TAB12 PO (12:17)
[2022-12-19] MEDS: fentaNYL 100 MCG/2 ML INJECTION IV PRN ×4 (12:21→12:40)
[2022-12-19] MEDS: oxyCODONE 5MG TAB PO PRN ×2 (12:21→12:51)
[2022-12-19] MEDS: HYDROMORPHONE HCL 0.5 MG/ 0.5 ML SYRINGE IV PRN ×2 (13:22→13:30)
[2022-12-19] MEDS ORDERED: BISACODYL 10MG SUPP PR PRN (16:30)
[2022-12-19] MEDS ORDERED: FLEET ENEMA PR PRN (16:30)
[2022-12-19] MEDS: MIRALAX *UNIT DOSE* 17GM PACKET PO SCH (17:11)
[2022-12-19] MEDS: ceFAZolin SOD 1 GM in D5W MINI-BAG PLUS 50 ML IV SCH (18:27)
[2022-12-19] MEDS: RAMELTEON 8 MG TAB (ROZEREM) PO SCH (19:43)
[2022-12-20 01:15] VITALS: BP 100/68; TEMP 97.7; O2SAT 94
[2022-12-20] MEDS: ceFAZolin SOD 1 GM in D5W MINI-BAG PLUS 50 ML IV SCH (03:04)
[2022-12-20] MEDS: PERCOCET 5MG/325MG TAB PO PRN ×2 (03:05→09:19)
[2022-12-20 06:00] VITALS: BP 121/76; TEMP 97.9; O2SAT 97
[2022-12-20 08:34] LABS: BASO # 0.1 10^3/uL (0.0-0.2); BASO % 0.7 % (0.0-1.0); EOS # 0.1 10^3/uL (0.0-0.5); EOS % 1.8 % (0.0-3.0); HEMATOCRIT 35.3 % (36.0-47.0); HEMOGLOBIN 11.1 g/dl (12.0-15.5); LYMPH # 2.2 10^3/uL (1.5-5.0); LYMPH % 30.1 % (24.0-44.0); MEAN CORPUSCULAR HEMOGLOBIN 27.5 pg (27.0-33.0); MEAN CORPUSCULAR HGB CONC 31.4 g/dl (32.0-36.5); MEAN CORPUSCULAR VOLUME 87.6 fl (80.0-96.0); MONO # 0.7 10^3/uL (0.0-0.8); MONO % 8.8 % (2.0-8.0); NEUTROPHILS # 4.3 10^3/uL (1.5-8.5); NEUTROPHILS % 58.3 % (36.0-66.0); PLATELET COUNT, AUTOMATED 352 10^3/uL (150-450); RED BLOOD COUNT 4.03 10^6/uL (4.00-5.40); WHITE BLOOD COUNT 7.4 10^3/uL (4.0-10.0)
[2022-12-20] MEDS: MIRALAX *UNIT DOSE* 17GM PACKET PO SCH (09:00)
[2022-12-20 09:07] LABS: BLOOD UREA NITROGEN 12 MG/DL (9-23); CALCIUM LEVEL 9.2 MG/DL (8.3-10.6); CARBON DIOXIDE LEVEL 30 MMOL/L (20-31); CHLORIDE LEVEL 102 MMOL/L (98-107); CREATININE FOR GFR 0.67 MG/DL (0.55-1.30); GLOMERULAR FILTRATION RATE > 60.0 (>45); GLUCOSE, FASTING 89 MG/DL (74-106); MAGNESIUM LEVEL 2.3 MG/DL (1.8-2.4); SODIUM LEVEL 138 MMOL/L (136-145)
[2022-12-20] MEDS: ASPIRIN 81MG ENTERIC TABLET PO SCH (09:18)
[2022-12-20] MEDS: MULTIVITAMINS/MINERALS THERAP 1 TAB PO SCH (09:18)
[2022-12-20] MEDS: ESCITALOPRAM OXALATE 10 MG TAB (LEXAPRO) PO SCH (09:19)
[2022-12-20] MEDS: SENOKOT S TAB PO SCH (09:19)
[2022-12-20] MEDS: DOCUSATE SODIUM 100MG CAPSULE PO SCH (09:19)
[2022-12-20] MEDS ORDERED: MAAL10003 PO (10:11)
[2022-12-20] MEDS ORDERED: SENN-52 PO ×2 (10:11→10:12)
== END 2022-12-20 11:00 | disposition home or self-care (01) | DRG 315 ==
LOC: EDBD 03:51 → M ED 03:51 → M ED INP 11:39 → M MS5PR 14:05
PROVIDERS: ADMIT Internal Medicine; ATTEND Internal Medicine
PROC: 0PSC04Z Reposition Right Humeral Head with Internal Fixation Device, Open Approach (ICD-10-PCS; principal; 2022-12-15 16:30)
PROC: 0PSH04Z Reposition Right Radius with Internal Fixation Device, Open Approach (ICD-10-PCS; 2022-12-19)
DX: S42.221A 2-part displaced fracture of surgical neck of right humerus, initial encounter for closed fracture (principal); F32.A Depression, unspecified; S52.551A Other extraarticular fracture of lower end of right radius, initial encounter for closed fracture; S52.614A Nondisplaced fracture of right ulna styloid process, initial encounter for closed fracture; R73.03 Prediabetes; F41.9 Anxiety disorder, unspecified; G47.00 Insomnia, unspecified; K59.03 Drug induced constipation; T40.2X5A Adverse effect of other opioids, initial encounter; Z90.49 Acquired absence of other specified parts of digestive tract; Z98.84 Bariatric surgery status; Z87.891 Personal history of nicotine dependence; W10.8XXA Fall (on) (from) other stairs and steps, initial encounter; Y92.018 Other place in single-family (private) house as the place of occurrence of the external cause; Y93.89 Activity, other specified; Y99.8 Other external cause status; Z79.899 Other long term (current) drug therapy; Z79.85 Long-term (current) use of injectable non-insulin antidiabetic drugs

== ENCOUNTER → 2022-12-25 | Outpatient (CLI) | payer BC ==
[~2022-12-25] MED LIST changes: +MAAL10003 PO; +PERC5TAB12 PO; +SEMA0.257 SQ; +SENN-52 PO
== END ==
LOC: M SOG 07:58
PROVIDERS: ATTEND Orthopaedic Surgery
DX: S42.221A 2-part displaced fracture of surgical neck of right humerus, initial encounter for closed fracture (principal); M25.531 Pain in right wrist; Y93.9 Activity, unspecified; Y92.9 Unspecified place or not applicable

== ENCOUNTER → 2023-01-09 | Outpatient (CLI) | payer BC | LOC: M SOG 08:00 | PROVIDERS: ATTEND Physician Assistant | DX: S42.221D 2-part displaced fracture of surgical neck of right humerus, subsequent encounter for fracture with routine healing (principal); M25.631 Stiffness of right wrist, not elsewhere classified; X58.XXXD Exposure to other specified factors, subsequent encounter ==

== ENCOUNTER → 2023-03-13 | Outpatient (CLI) | payer BC | LOC: M WHC 08:08 | PROVIDERS: ATTEND Nurse Practitioner Family | DX: Z12.31 Encounter for screening mammogram for malignant neoplasm of breast (principal) ==

== ENCOUNTER → 2023-03-19 | Outpatient (CLI) | payer BC | LOC: M SOG 07:59 | PROVIDERS: ATTEND Physician Assistant | DX: S42.221A 2-part displaced fracture of surgical neck of right humerus, initial encounter for closed fracture (principal); S52.501A Unspecified fracture of the lower end of right radius, initial encounter for closed fracture; Y93.9 Activity, unspecified; Y92.9 Unspecified place or not applicable ==

== ENCOUNTER → 2023-05-11 | Outpatient (CLI) | payer BC, OTHER | LOC: M RAD 10:39 | PROVIDERS: ATTEND Nurse Practitioner Family | DX: Z53.9 Procedure and treatment not carried out, unspecified reason (principal) ==

== ENCOUNTER → 2023-06-22 | Outpatient (CLI) | payer OTHER ==
[~2023-06-22] MED LIST changes: +MULT18TA PO; -ONE-1TAB PO
== END ==
LOC: M PLAIMG 14:30
PROVIDERS: ATTEND Nurse Practitioner Family
DX: M25.561 Pain in right knee (principal)

== ENCOUNTER → 2023-06-22 | Outpatient (CLI) | payer OTHER | LOC: M WHC 13:46 | PROVIDERS: ATTEND Nurse Practitioner Family | DX: M85.852 Other specified disorders of bone density and structure, left thigh (principal) ==

== ENCOUNTER → 2023-07-02 | Outpatient (CLI) | payer OTHER | LOC: M SOG 08:27 | PROVIDERS: ATTEND Physician Assistant | DX: S42.221D 2-part displaced fracture of surgical neck of right humerus, subsequent encounter for fracture with routine healing (principal); Y93.9 Activity, unspecified; Y92.9 Unspecified place or not applicable ==

== ENCOUNTER → 2023-07-22 | Outpatient (REF) | payer OTHER ==
[2023-07-22 13:59] LABS: BASO # 0.1 10^3/uL (0.0-0.2); BASO % 1.5 % (0.0-1.0); EOS # 0.1 10^3/uL (0.0-0.5); EOS % 2.6 % (0.0-3.0); HEMATOCRIT 45.4 % (36.0-47.0); HEMOGLOBIN 14.3 g/dl (12.0-15.5); LYMPH # 1.9 10^3/uL (1.5-5.0); LYMPH % 40.9 % (24.0-44.0); MEAN CORPUSCULAR HEMOGLOBIN 28.4 pg (27.0-33.0); MEAN CORPUSCULAR HGB CONC 31.5 g/dl (32.0-36.5); MEAN CORPUSCULAR VOLUME 90.3 fl (80.0-96.0); MONO # 0.6 10^3/uL (0.0-0.8); MONO % 12.6 % (2.0-8.0); NEUTROPHILS # 1.9 10^3/uL (1.5-8.5); NEUTROPHILS % 42.2 % (36.0-66.0); PLATELET COUNT, AUTOMATED 319 10^3/uL (150-450); RED BLOOD COUNT 5.03 10^6/uL (4.00-5.40); WHITE BLOOD COUNT 4.6 10^3/uL (4.0-10.0)
[2023-07-22 14:12] LABS: HEMOGLOBIN A1c 5.6 % (4.0-6.0)
[2023-07-22 14:33] LABS: ALBUMIN 4.1 G/DL (3.2-5.2); ALKALINE PHOSPHATASE 106 U/L (46-116); ALT/SGPT 28 U/L (7.0-40); AST/SGOT 15 U/L (<34); BILIRUBIN,TOTAL 0.4 MG/DL (0.3-1.2); BLOOD UREA NITROGEN 18 MG/DL (9-23); CALCIUM LEVEL 9.9 MG/DL (8.3-10.6); CARBON DIOXIDE LEVEL 31 MMOL/L (20-31); CHLORIDE LEVEL 107 MMOL/L (98-107); CHOLESTEROL LEVEL 232 MG/DL (<200); CREATININE FOR GFR 0.67 MG/DL (0.55-1.30); GLOMERULAR FILTRATION RATE > 60.0 (>45); GLUCOSE, FASTING 87 MG/DL (74-106); HDL CHOLESTEROL 70.3 MG/DL (>40); LDL CHOLESTEROL 131.7 MG/DL (<100); MAGNESIUM LEVEL 1.9 MG/DL (1.8-2.4); NON-HDL-C 161.7 MG/DL; POTASSIUM SERUM 5.8 MMOL/L (3.5-5.1); SODIUM LEVEL 141 MMOL/L (136-145); TRIGLYCERIDES LEVEL 150 MG/DL (<150)
[2023-07-22 14:36] LABS: THYROID STIMULATING HORMONE 1.962 uIU/ML (0.55-4.78); TOTAL 25(OH) VITAMIN D 33.5 NG/ML (20.0-100.0)
== END ==
LOC: M LAB REF 12:11
PROVIDERS: ATTEND Nurse Practitioner Family
DX: E66.3 Overweight (principal); E55.9 Vitamin D deficiency, unspecified

== ENCOUNTER → 2023-08-12 | Outpatient (CLI) | payer OTHER ==
[~2023-08-12] MED LIST changes: +PROHANCE 279.3MG/ML 15ML VIAL ONE
== END ==
LOC: M PLAIMG 09:55
PROVIDERS: ATTEND Nurse Practitioner Family
DX: R92.2 Inconclusive mammogram (principal)
CPT/HCPCS: 77049; A9576

== ENCOUNTER → 2023-10-22 | Outpatient (REF) | payer OTHER, BC ==
[~2023-10-22] MED LIST changes: -PROHANCE 279.3MG/ML 15ML VIAL ONE
[2023-10-22 17:11] LABS: ALBUMIN 4.2 G/DL (3.2-5.2); ALKALINE PHOSPHATASE 116 U/L (46-116); ALT/SGPT 28 U/L (7.0-40); AST/SGOT 20 U/L (<34); BILIRUBIN,TOTAL 0.7 MG/DL (0.3-1.2); BLOOD UREA NITROGEN 20 MG/DL (9-23); CARBON DIOXIDE LEVEL 28 MMOL/L (20-31); CHLORIDE LEVEL 102 MMOL/L (98-107); CREATININE FOR GFR 0.75 MG/DL (0.55-1.30); GLOMERULAR FILTRATION RATE > 60.0 (>45); GLUCOSE, FASTING 105 MG/DL (74-106); POTASSIUM SERUM 4.5 MMOL/L (3.5-5.1); SODIUM LEVEL 137 MMOL/L (136-145); TOTAL PROTEIN 7.3 G/DL (5.7-8.2)
[2023-10-22 18:13] LABS: HEMOGLOBIN A1c 5.6 % (4.0-6.0)
== END ==
LOC: M LAB REF 16:35
PROVIDERS: ATTEND Nurse Practitioner Family
DX: E66.3 Overweight (principal)

== ENCOUNTER → 2023-12-21 | Outpatient (REF) | payer BC ==
[2023-12-21 18:22] LABS: HEMOGLOBIN A1c 5.8 % (4.0-6.0)
[2023-12-21 18:40] LABS: ALBUMIN 4.1 G/DL (3.2-5.2); ALKALINE PHOSPHATASE 107 U/L (46-116); ALT/SGPT 31 U/L (7.0-40); AST/SGOT 18 U/L (<34); BILIRUBIN,TOTAL 0.3 MG/DL (0.3-1.2); BLOOD UREA NITROGEN 17 MG/DL (9-23); CALCIUM LEVEL 9.6 MG/DL (8.3-10.6); CARBON DIOXIDE LEVEL 32 MMOL/L (20-31); CHLORIDE LEVEL 105 MMOL/L (98-107); CHOLESTEROL LEVEL 265 MG/DL (<200); CHOLESTEROL RISK RATIO 3.48 (<5); CREATININE FOR GFR 0.68 MG/DL (0.55-1.30); GLOMERULAR FILTRATION RATE > 60.0 (>45); GLUCOSE, FASTING 98 MG/DL (74-106); LDL CHOLESTEROL 162.4 MG/DL (<100); SODIUM LEVEL 140 MMOL/L (136-145); TOTAL PROTEIN 7.5 G/DL (5.7-8.2); TRIGLYCERIDES LEVEL 133 MG/DL (<150)
== END ==
LOC: M LAB REF 16:29
PROVIDERS: ATTEND Nurse Practitioner Family
DX: E66.3 Overweight (principal)

== ENCOUNTER → 2024-01-14 | Outpatient (REF) | payer BC, OTHER ==
[2024-01-14 21:28] LABS: GC DNA AMPLIFICATION NEGATIVE (NEGATIVE)
[2024-01-16 13:46] LABS: HPV APTIMA Not Detected (Not Detected)
== END ==
LOC: M PLALAB 14:19
PROVIDERS: ATTEND Obstetrics & Gynecology
DX: Z20.2 Contact with and (suspected) exposure to infections with a predominantly sexual mode of transmission (principal); Z01.419 Encounter for gynecological examination (general) (routine) without abnormal findings

== ENCOUNTER → 2024-01-14 | Outpatient (CLI) | payer BC ==
[2024-01-14 16:34] LABS: HEPATITIS B SURFACE ANTIGEN NEGATIVE (NEGATIVE)
[2024-01-14 16:46] LABS: HIV 1&2 SCREEN NEGATIVE (NEGATIVE)
[2024-01-14 16:53] LABS: HEPATITIS C VIRUS ABY INDEX < 0.02 INDEX (<0.8)
[2024-01-14 16:54] LABS: HEPATITIS B CORE ANTIBODY IGM NEGATIVE (NEGATIVE)
== END ==
LOC: M PLALAB 11:54
PROVIDERS: ATTEND Obstetrics & Gynecology
DX: Z20.2 Contact with and (suspected) exposure to infections with a predominantly sexual mode of transmission (principal)

== ENCOUNTER → 2024-02-04 | Outpatient (CLI) | payer BC | LOC: M SOG 07:23 | PROVIDERS: ATTEND Physician Assistant | DX: S42.221D 2-part displaced fracture of surgical neck of right humerus, subsequent encounter for fracture with routine healing (principal); S52.501D Unspecified fracture of the lower end of right radius, subsequent encounter for closed fracture with routine healing ==

== ENCOUNTER → 2024-02-12 | Outpatient (CLI) | payer BC | LOC: M WHC 13:50 | PROVIDERS: ATTEND Obstetrics & Gynecology | DX: Z01.411 Encounter for gynecological examination (general) (routine) with abnormal findings (principal); N83.201 Unspecified ovarian cyst, right side; N88.8 Other specified noninflammatory disorders of cervix uteri ==

== ENCOUNTER → 2024-02-23 | Outpatient (CLI) | payer BC | LOC: M RAD 15:29 | PROVIDERS: ATTEND Nurse Practitioner Family | DX: Z12.2 Encounter for screening for malignant neoplasm of respiratory organs (principal); Z87.891 Personal history of nicotine dependence; J98.11 Atelectasis; J84.10 Pulmonary fibrosis, unspecified; R91.8 Other nonspecific abnormal finding of lung field ==

== ENCOUNTER → 2024-02-29 | Outpatient (REF) | payer OTHER | LOC: M PLALAB 15:58 | PROVIDERS: ATTEND Obstetrics & Gynecology | DX: N83.201 Unspecified ovarian cyst, right side (principal); Z53.9 Procedure and treatment not carried out, unspecified reason ==

== ENCOUNTER → 2024-03-08 | Outpatient (CLI) | payer BC ==
[2024-03-08 13:24] LABS: CARCINOEMBRYONIC ANTIGEN < 2.0 NG/ML (<2.5)
[2024-03-08 13:25] LABS: ESTRADIOL < 19.0 PG/ML; LDH LACTATE DEHYDROGENASE 159 U/L (120-246)
== END ==
LOC: M PLALAB 10:35
PROVIDERS: ATTEND Obstetrics & Gynecology
DX: N83.201 Unspecified ovarian cyst, right side (principal)

== ENCOUNTER → 2024-05-05 | Outpatient (REF) | payer BC ==
[2024-05-05 14:24] LABS: ALBUMIN 4.2 G/DL (3.2-5.2); ALKALINE PHOSPHATASE 93 U/L (35-104); ALT/SGPT 20 U/L (7.0-40); AST/SGOT 18 U/L (<34); BILIRUBIN,TOTAL 0.5 MG/DL (0.3-1.2); BLOOD UREA NITROGEN 14 MG/DL (9-23); CARBON DIOXIDE LEVEL 29 MMOL/L (20-31); CHLORIDE LEVEL 105 MMOL/L (98-107); CHOLESTEROL LEVEL 220 MG/DL (<200); CHOLESTEROL RISK RATIO 3.84 (<5); CREATININE FOR GFR 0.73 MG/DL (0.55-1.30); FERRITIN 62.9 NG/ML (7.3-270.7); GLOMERULAR FILTRATION RATE > 60.0 (>45); GLUCOSE, FASTING 88 MG/DL (74-106); HDL CHOLESTEROL 57.2 MG/DL (>40); IRON (FE) 79 UG/DL (50-170); LDL CHOLESTEROL 136.4 MG/DL (<100); NON-HDL-C 162.8 MG/DL; PERCENT SATURATION 28.2 % (13.2-45.0); POTASSIUM SERUM 4.6 MMOL/L (3.5-5.1); SODIUM LEVEL 142 MMOL/L (136-145); TOTAL IRON BINDING CAPACITY 280 UG/DL (250-425); TOTAL PROTEIN 7.5 G/DL (5.7-8.2); TRIGLYCERIDES LEVEL 132 MG/DL (<150); VITAMIN B12 LEVEL 964 PG/ML (211-911)
[2024-05-05 14:25] LABS: THYROID STIMULATING HORMONE 1.639 uIU/ML (0.55-4.78); TOTAL 25(OH) VITAMIN D 42.1 NG/ML (20.0-100.0)
[2024-05-05 14:27] LABS: BASO # 0.1 10^3/uL (0.0-0.2); BASO % 1.2 % (0.0-1.0); EOS # 0.2 10^3/uL (0.0-0.5); EOS % 2.9 % (0.0-3.0); HEMATOCRIT 48.7 % (36.0-47.0); HEMOGLOBIN 15.6 g/dl (12.0-15.5); LYMPH # 1.7 10^3/uL (1.5-5.0); LYMPH % 33.2 % (24.0-44.0); MEAN CORPUSCULAR HEMOGLOBIN 28.1 pg (27.0-33.0); MEAN CORPUSCULAR VOLUME 87.7 fl (80.0-96.0); MONO # 0.4 10^3/uL (0.0-0.8); MONO % 8.1 % (2.0-8.0); NEUTROPHILS # 2.8 10^3/uL (1.5-8.5); NEUTROPHILS % 54.6 % (36.0-66.0); PLATELET COUNT, AUTOMATED 325 10^3/uL (150-450); RED BLOOD COUNT 5.55 10^6/uL (4.00-5.40); WHITE BLOOD COUNT 5.1 10^3/uL (4.0-10.0)
[2024-05-05 14:32] LABS: FOLATE > 24.0 NG/ML (>5.4)
[2024-05-05 14:47] LABS: HEMOGLOBIN A1c 5.3 % (4.0-6.0)
== END ==
LOC: M LAB REF 12:43
PROVIDERS: ATTEND Nurse Practitioner Family
DX: E55.9 Vitamin D deficiency, unspecified (principal); E66.9 Obesity, unspecified; R73.03 Prediabetes; R53.83 Other fatigue

== ENCOUNTER → 2024-06-16 | Outpatient (CLI) | payer BC | LOC: M WHC 11:11 | PROVIDERS: ATTEND Obstetrics & Gynecology | DX: N83.201 Unspecified ovarian cyst, right side (principal); R93.89 Abnormal findings on diagnostic imaging of other specified body structures ==

== ENCOUNTER → 2024-07-25 | Outpatient (REF) | payer BC ==
[2024-07-25 15:31] LABS: BASO # 0.1 10^3/uL (0.0-0.2); BASO % 1.1 % (0.0-1.0); EOS # 0.1 10^3/uL (0.0-0.5); HEMATOCRIT 46.2 % (36.0-47.0); HEMOGLOBIN 14.9 g/dl (12.0-15.5); LYMPH # 1.5 10^3/uL (1.5-5.0); LYMPH % 26.2 % (24.0-44.0); MEAN CORPUSCULAR HEMOGLOBIN 28.8 pg (27.0-33.0); MEAN CORPUSCULAR HGB CONC 32.3 g/dl (32.0-36.5); MEAN CORPUSCULAR VOLUME 89.2 fl (80.0-96.0); MONO # 0.6 10^3/uL (0.0-0.8); MONO % 10.5 % (2.0-8.0); NEUTROPHILS # 3.4 10^3/uL (1.5-8.5); PLATELET COUNT, AUTOMATED 348 10^3/uL (150-450); RED BLOOD COUNT 5.18 10^6/uL (4.00-5.40); WHITE BLOOD COUNT 5.6 10^3/uL (4.0-10.0)
[2024-07-25 15:33] LABS: CHOLESTEROL RISK RATIO 3.24 (<5); HDL CHOLESTEROL 63.2 MG/DL (>40); NON-HDL-C 141.8 MG/DL
[2024-07-25 15:50] LABS: HEMOGLOBIN A1c 4.8 % (4.0-6.0)
== END ==
LOC: M LAB REF 14:55
PROVIDERS: ATTEND Nurse Practitioner Family
DX: E66.3 Overweight (principal)

== ENCOUNTER → 2024-12-01 | Outpatient (CLI) | payer BC | LOC: M PLAIMG 13:50 | PROVIDERS: ATTEND Nurse Practitioner Adult Health | DX: R07.81 Pleurodynia (principal) ==

== ENCOUNTER → 2025-01-12 | Outpatient (CLI) | payer BC ==
[2025-01-12 13:19] LABS: BASO # 0.1 10^3/uL (0.0-0.2); BASO % 1.1 % (0.0-1.0); EOS # 0.1 10^3/uL (0.0-0.5); EOS % 2.2 % (0.0-3.0); LYMPH # 1.4 10^3/uL (1.5-5.0); LYMPH % 25.1 % (24.0-44.0); MONO # 0.5 10^3/uL (0.0-0.8); MONO % 9.6 % (2.0-8.0); NEUTROPHILS # 3.4 10^3/uL (1.5-8.5); NEUTROPHILS % 61.8 % (36.0-66.0); PLATELET COUNT, AUTOMATED 298 10^3/uL (150-450)
[2025-01-12 13:27] LABS: ALT/SGPT 25 U/L (7.0-40); AST/SGOT 19 U/L (<34); CALCIUM LEVEL 9.7 MG/DL (8.3-10.6); CARBON DIOXIDE LEVEL 30 MMOL/L (20-31); CHLORIDE LEVEL 107 MMOL/L (98-107); CHOLESTEROL LEVEL 189 MG/DL (<200); CHOLESTEROL RISK RATIO 2.91 (<5); CREATININE FOR GFR 0.66 MG/DL (0.55-1.30); FREE T4 1.33 NG/DL (0.89-1.76); GLOMERULAR FILTRATION RATE > 90.0 (>45); IRON (FE) 63 UG/DL (50-170); LDL CHOLESTEROL 110.7 MG/DL (<100); LUTEINIZING HORMONE 35.7 mIU/ML; NON-HDL-C 124.1 MG/DL; PERCENT SATURATION 22.0 % (13.2-45.0); POTASSIUM SERUM 5.2 MMOL/L (3.5-5.1); SODIUM LEVEL 143 MMOL/L (136-145); TRIGLYCERIDES LEVEL 67 MG/DL (<150)
[2025-01-12 13:28] LABS: ESTRADIOL 20.1 PG/ML; TOTAL 25(OH) VITAMIN D 47.8 NG/ML (20.0-100.0)
[2025-01-12 13:29] LABS: VITAMIN B12 LEVEL 637 PG/ML (211-911)
== END ==
LOC: M PLALAB 09:33
PROVIDERS: ATTEND Nurse Practitioner Adult Health
DX: N95.2 Postmenopausal atrophic vaginitis (principal); J45.40 Moderate persistent asthma, uncomplicated; F33.0 Major depressive disorder, recurrent, mild; F41.1 Generalized anxiety disorder; Z72.4 Inappropriate diet and eating habits; Z98.84 Bariatric surgery status; Z13.220 Encounter for screening for lipoid disorders

== ENCOUNTER → 2025-02-03 | Outpatient (REF) | payer BC, OTHER ==
[2025-02-07 15:08] LABS: HPV APTIMA Not Detected (Not Detected)
== END ==
LOC: M SFHCWAGY 17:23
PROVIDERS: ATTEND Physician Assistant
DX: Z12.4 Encounter for screening for malignant neoplasm of cervix (principal)

== ENCOUNTER → 2025-03-01 | Outpatient (CLI) | payer BC | LOC: M WHC 08:33 | PROVIDERS: ATTEND Physician Assistant | DX: Z53.9 Procedure and treatment not carried out, unspecified reason (principal) ==

== ENCOUNTER → 2025-03-14 | Outpatient (CLI) | payer BC | LOC: M PLAIMG 09:25 | PROVIDERS: ATTEND Physician Assistant | DX: R91.8 Other nonspecific abnormal finding of lung field (principal) ==

== ENCOUNTER → 2025-03-27 | Outpatient (CLI) | payer BC | LOC: M WHC 14:39 | PROVIDERS: ATTEND Physician Assistant | DX: D39.10 Neoplasm of uncertain behavior of unspecified ovary (principal); Z12.31 Encounter for screening mammogram for malignant neoplasm of breast ==